=== PATIENT | male | born 1965 | race Caucasian/White ===

== ENCOUNTER 2020-08-08 21:29 | Emergency (ER) | payer OTHER, SELFPAY ==
[2020-08-08 21:42] VITALS: BP 127/87; PULSE 103; RESP 20; TEMP 37.2; O2SAT 98; BMI 27.0
[2020-08-08 22:20] VITALS: BP 140/97; PULSE 94; RESP 18; TEMP 36.7; O2SAT 98
[2020-08-08 22:23] LABS: Basophils Absolute Auto 0.1 X10*3/uL (0.0-0.2); Basophils Percent Auto 0.7 % (0-2); Eosinophils Absolute Auto 0.1 X10*3/uL (0.0-0.4); Hematocrit 39.9 % (42-52); Hemoglobin 14.3 g/dl (14.0-18.0); Imm Gran Abs Auto 0.06 X10*3/uL (0.00-0.03); Imm Gran Pct Auto 0.5 % (0.0-0.4); Lymphocytes Absolute Auto 1.5 X10*3/uL (1.2-4.9); Lymphocytes Percent Auto 11.7 % (20-40); MANUAL DIFF FLAG NO; Mean Corpuscular HGB Conc 35.8 g/dl (31.0-36.0); Mean Corpuscular Hemoglobin 31.4 pg (27.0-33.0); Mean Corpuscular Volume 87.7 fL (80-98); Mean Platelet Volume 9.5 fL (9.4-12.4); Monocytes Absolute Auto 0.9 X10*3/uL (0.1-1.2); Monocytes Percent Auto 7.3 % (2-11); Neutrophils Absolute Auto 9.8 X10*3/uL (2.0-8.3); Neutrophils Percent Auto 78.8 % (45-73); Platelet Count 248 X10*3/uL (160-400); Red Blood Count 4.55 X10*6/uL (4.60-5.80); Red Cell Distribution Width 11.6 % (11.0-16.0); White Blood Count 12.5 X10*3/uL (4.8-10.8)
[2020-08-08 22:45] LABS: Anion Gap 15 (12-20); Blood Urea Nitrogen 10 mg/dL (9-16); Calcium 8.9 mg/dL (8.4-10.2); Carbon Dioxide 24 mmol/L (22-29); Chloride 103 mmol/L (96-108); Creatinine Clr Calc Pharmacy 84.4; Estimated Glomerular Filt Rate > 60; Glucose Random 113 mg/dL (60-115); Potassium 3.7 mmol/L (3.3-5.1); Sodium 138 mmol/L (135-145)
[2020-08-08 23:53] VITALS: BP 143/93; PULSE 83; RESP 18; TEMP 36.7; O2SAT 99
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
[2020-08-09] MEDS: Acetaminophen 325 MG TABLET 975 MG PO (00:37)
[2020-08-09] MEDS: Ibuprofen 400 MG TABLET PO (00:37)
== END 2020-08-09 00:43 | disposition home or self-care (01) ==
PROVIDERS: Emergency Provider Student in an Organized Health Care Education/Training Program; PCP Internal Medicine
DX: T25.222A Burn of second degree of left foot, initial encounter (principal); T31.0 Burns involving less than 10% of body surface; X12.XXXA Contact with other hot fluids, initial encounter; Y93.9 Activity, unspecified; Y92.019 Unspecified place in single-family (private) house as the place of occurrence of the external cause; Y99.9 Unspecified external cause status
CPT/HCPCS: 16020; 36415; 80048; 85025; 87040; 90471; 90715; 99284

== ENCOUNTER 2020-10-13 13:18 | Outpatient (REF) | payer OTHER, SELFPAY ==
[2020-10-13 14:09] LABS: COVID-19 Test Negative (Negative); IDNOW Serial# 55D5AD1C
== END 2020-10-13 13:19 | disposition home or self-care (01) ==
LOC: HO.LAB 13:18
PROVIDERS: Visit Provider Internal Medicine
DX: Z20.822 Contact with and (suspected) exposure to COVID-19 (principal)
CPT/HCPCS: 36415; 87635; C9803

== ENCOUNTER 2021-02-25 21:30 | Emergency (ER) | payer OTHER, SELFPAY ==
[2021-02-25 21:32] VITALS: BP 142/91; PULSE 83; RESP 16; TEMP 36.1; O2SAT 98; BMI 25.7
--- NOTE | 2021-02-25 21:43 | ED.SKABFB ---
HPI - Skin/Abscess/Foreign Bdy General Chief complaint: Skin/Abscess/Foreign Body Stated complaint: abscess Time Seen by Provider: 02/25/21 21:36 Source: patient Mode of arrival: ambulatory Limitations: no limitations History of Present Illness HPI narrative: 55-year-old male here with redness and swelling to the left forearm for 2 days. Unknown injury or trauma. No fevers or chills. Related Data Previous Rx's Medication Instructions Recorded doxycycline monohydrate 100 mg 100 mg PO BID #20 tab 02/25/21 tablet Allergies Allergy/AdvReac Type Severity Reaction Status Date / Time sulfamethoxazole AdvReac Nausea Verified 02/25/21 21:34 [From Bactrim] trimethoprim [From Bactrim] AdvReac Nausea Verified 02/25/21 21:34 Review of Systems Review of Systems: Yes all other systems are reviewed and are negative Constitutional: Constitutional: Reports no additional constitutional complaints, Denies body ache(s), Denies chills, Denies fever(s), Denies headache(s) and Denies weakness Eyes: Eyes: Reports no additional eye complaints and Denies change in vision ENT: Reports system reviewed and no additional complaints, except as documented, Denies dizziness, Denies headache(s), Denies nasal congestion, Denies nasal discharge and Denies neck pain Cardiovascular: Cardiovascular: Reports no additional cardiovascular complaints, Denies chest pain, Denies leg edema and Denies dyspnea Respiratory: Respiratory: Reports no additional respiratory complaints, Denies cough and Denies dyspnea Gastrointestinal: Gastrointestinal: Reports no additional gastrointestinal complaints, Denies abdominal pain, Denies diarrhea, Denies nausea and Denies vomiting Genitourinary: Genitourinary: Denies urinary incontinence Musculoskeletal: Musculoskeletal: Reports no additional musculoskeletal complaints, Denies back pain, Denies arthralgias, Denies joint swelling, Denies neck pain, Denies numbness and Denies tingling Integumentary/Breasts: Skin/Breast: Reports system reviewed and no additional complaints, except as docu, Reports swelling, Reports erythema and Denies rash Neurologic: Reports system reviewed and no additional complaints, except as documented, Denies Abnormal speech present, Denies dizziness, Denies headache(s), Denies numbness, Denies tingling and Denies weakness PMFSH Past Medical History Medical History Depression Hx of intravenous drug use in remission Social History Social History Alcohol intake: current Alcohol intake frequency: a few times a week Physical Exam Vital Signs: Vital Signs: Last Vital Signs Temp 96.9 F 02/25/21 21:32 Pulse 83 02/25/21 21:32 Resp 16 02/25/21 21:32 BP 142/91 H 02/25/21 21:32 Pulse Ox 98 02/25/21 21:32 Body Mass Index 25.7 Const: General: cooperative, healthy appearing, comfortable and no acute distress Orientation/consciousness: patient oriented x3 Limitations: no limitations HENMT: Head: Yes normal to inspection Ears: hearing grossly normal bilaterally General nose exam: Normal external nose present Face and sinus: Yes normal facial exam Mouth: Normal oral and palatal mucosa present Throat: Yes posterior oropharynx normal Eyes: General: appearance normal, both eyes and all related structures Pupils: Equal, round and reactive pupils present Neck: Neck: Yes normal visual inspection Chest: Chest palpation & inspection: normal inspection of the chest Resp: Effort & Inspection: normal respiratory effort Auscultation: clear to auscultation bilaterally Cardio: Rate: regular rate Rhythm: regular rhythm Peripheral pulses: Peripheral pulses 2+ throughout GI: Inspection: Yes normal to inspection Palpation (GI): Soft to palpation and nontender Auscultation: normal bowel sounds Back/Spine/Pelvis: Thoracic/Lumbar Spine: thoracic and lumbar spine normal to inspection Skin: General skin exam: no rashes or lesions noted Neuro: General: patient oriented x3, no focal motor deficits and normal sensation to monofilament Cranial nerves: Yes Equal, round and reactive pupils present Cognition (Neuro): normal cognition Speech: No Abnormal speech present Gait exam (Neuro): Normal gait present Motor exam (neuro): 5/5 motor strength present throughout Extrem: Other: To the distal left forearm there is a 4 centimetre area that is circular of redness and swelling and some drainage. There is no induration or fluctuance. It is not circumferential General: Yes normal to inspection Course Course Course Narrative: Local abscess. No need for I&D. Will start patient on oral antibiotics and recommend warm soaks. Reviewed worrisome signs and symptoms of when to return to the emergency department. Comfortable discharge home. MDM - Skin/Abscess/Foreign Bdy Medical Records Attestation: I reviewed the patient's medical records. Lab Data Attestation: I reviewed the patient's lab results. Discharge Plan Discharge Clinical Impression: Abscess of skin or subcutaneous tissue Patient Disposition: Home, Self-Care Instructions: Abscess (ED) Additional Instructions: warm compresses or soak Prescriptions: New doxycycline monohydrate 100 mg tablet 100 mg PO BID Qty: 20 RF: 0 Referrals: Donna Nguyễn MD [Primary Care Provider] - 2 days
== END 2021-02-25 22:17 | disposition home or self-care (01) ==
LOC: HO.ED 21:47
PROVIDERS: Emergency Provider Emergency Medicine Emergency Medical Services; PCP Internal Medicine
DX: L02.414 Cutaneous abscess of left upper limb (principal); F11.20 Opioid dependence, uncomplicated
CPT/HCPCS: 99283; 99284

== ENCOUNTER 2022-03-15 14:57 | Emergency (ER) | payer OTHER, SELFPAY ==
[2022-03-15 15:06] VITALS: BP 175/99; PULSE 115; RESP 18; TEMP 37.2; O2SAT 97; BMI 23.7
--- NOTE | 2022-03-15 15:08 | ECG_ITS ---
Test Reason : tacky Blood Pressure : / mmHG Vent. Rate : 099 BPM Atrial Rate : 099 BPM P-R Int : 136 ms QRS Dur : 076 ms QT Int : 334 ms P-R-T Axes : 073 022 070 degrees QTc Int : 428 ms Normal sinus rhythm Right atrial enlargement Nonspecific ST abnormality Abnormal ECG No previous ECGs available Referred By: Generic ED Physician Electronically Signed By:SANDI GARCIA
[2022-03-15 16:09] LABS: MANUAL DIFF FLAG NO
[2022-03-15 16:10] LABS: Basophils Absolute Auto 0.2 X10*3/uL (0.0-0.2); Basophils Percent Auto 1.3 % (0-2); Eosinophils Percent Auto 0.3 % (0-4); Hematocrit 50.7 % (42.0-52.0); Imm Gran Abs Auto 0.05 X10*3/uL (0.00-0.03); Imm Gran Pct Auto 0.4 % (0.0-0.4); Lymphocytes Absolute Auto 1.6 X10*3/uL (1.2-4.9); Lymphocytes Percent Auto 13.6 % (20-40); Mean Corpuscular HGB Conc 35.5 g/dl (31.0-36.0); Mean Corpuscular Hemoglobin 31.1 pg (27.0-33.0); Mean Corpuscular Volume 87.7 fL (80.0-98.0); Mean Platelet Volume 8.9 fL (9.4-12.4); Monocytes Absolute Auto 0.7 X10*3/uL (0.1-1.2); Monocytes Percent Auto 5.9 % (2-11); Neutrophils Percent Auto 78.5 % (45-73); Platelet Count 331 X10*3/uL (160-400); Red Blood Count 5.78 X10*6/uL (4.60-5.80); Red Cell Distribution Width 13.1 % (11.0-16.0); White Blood Count 11.4 X10*3/uL (4.8-10.8)
[2022-03-15 16:24] LABS: COVID-19 Test Negative (Negative)
[2022-03-15 16:26] LABS: Alanine Aminotransferase 32 U/L (0-40); Albumin Level 4.4 g/dL (3.5-5.0); Alkaline Phosphatase 87 U/L (39-117); Anion Gap 21 (12-20); Aspartate Amino Transferase 37 U/L (5-37); Bilirubin Total 0.9 mg/dL (0.0-1.0); Blood Urea Nitrogen 10 mg/dL (9-16); Calcium 8.8 mg/dL (8.4-10.2); Carbon Dioxide 24 mmol/L (22-29); Chloride 98 mmol/L (96-108); Creatinine Clr Calc Pharmacy 92.4; Estimated Glomerular Filt Rate > 60; Ethanol 320 mg/dL; Glucose Random 123 mg/dL (60-115); Potassium 4.4 mmol/L (3.3-5.1); Sodium 139 mmol/L (135-145); Total Protein 7.5 g/dL (6.5-8.0)
[2022-03-15 20:23] VITALS: BP 152/99; PULSE 100; RESP 18; TEMP 36.6; O2SAT 98
[2022-03-15 23:28] VITALS: BP 149/99; PULSE 102; RESP 18; TEMP 36.6; O2SAT 98
--- NOTE | 2022-03-16 01:31 | ED.GENADULT ---
HPI - General Adult General Chief complaint: Psychiatric Symptoms Stated complaint: Psych symptoms Time Seen by Provider: 03/16/22 01:23 Source: patient Limitations: no limitations History of Present Illness HPI narrative: this is a 56-year-old male who had been on Seroquel, until 9 days ago. The patient went to get a refilled but his primary care physician apparently has stated that here she will not prescribe psychiatric medications any more. The patient states he has tried to get seen at [facility] for this reason. The patient notes that he has been drinking more alcohol recently. He denies drinking every day. He does feel a little shaky and nauseated. He denies any suicidal ideation or attempt, denies hearing voices, denies wanting to hurt anybody else. He feels like he needs something to Level him out . Related Data Previous Rx's Medication Instructions Recorded doxycycline monohydrate 100 mg 100 mg PO BID #20 tabs 02/25/21 tablet diazepam 5 mg tablet (Valium) 5 mg PO TID PRN anxiety #10 tabs 03/16/22 ondansetron 4 mg disintegrating 4 mg PO Q6H PRN nausea and 03/16/22 tablet vomiting #10 tabs quetiapine 200 mg tablet (Seroquel) 200 mg PO DAILY #30 tabs 03/16/22 Allergies Allergy/AdvReac Type Severity Reaction Status Date / Time sulfamethoxazole AdvReac Nausea Verified 02/25/21 21:34 [From Bactrim] trimethoprim [From Bactrim] AdvReac Nausea Verified 02/25/21 21:34 Review of Systems Review of Systems: Yes all other systems are reviewed and are negative Constitutional: Constitutional: Reports as per HPI and Denies fever(s) Eyes: Eyes: Reports as per HPI and Reports no additional eye complaints ENT: Reports system reviewed and no additional complaints, except as documented, Reports as per HPI, Denies nasal congestion, Denies nasal discharge and Denies sore throat Cardiovascular: Cardiovascular: Reports as per HPI, Denies chest pain and Denies dyspnea Respiratory: Respiratory: Reports as per HPI, Denies cough and Denies dyspnea Gastrointestinal: Gastrointestinal: Reports as per HPI, Denies abdominal pain, Denies diarrhea, Reports nausea and Denies vomiting Genitourinary: Genitourinary: Reports as per HPI, Denies hematuria, Denies dysuria and Denies urinary frequency Musculoskeletal: Musculoskeletal: Reports no additional musculoskeletal complaints and Denies numbness Integumentary/Breasts: Skin/Breast: Reports as per HPI and Denies rash Neurologic: Reports as per HPI, Denies focal weakness and Denies numbness Comments: Feels shaky Psychiatric: Psychiatric: Reports no additional psychiatric complaints and Reports as per HPI Endocrine: Endocrine: Reports no additional endocrine complaints and Reports as per HPI Hematologic/Lymphatic: Hematologic/Lymphatic: Reports no additional hematologic/lymphatic complaints, Reports as per HPI and Reports other (No peripheral edema) [facility] Past Medical History Medical History Depression Hx of intravenous drug use in remission Social History Social History Alcohol intake: current Alcohol intake frequency: a few times a week Advance Directives: No Advance Directives Information Provided: No Physical Exam ED Vital Signs: Vital Signs - 24 hr 03/15/22 15:06 03/15/22 20:23 03/15/22 23:28 Temperature 98.9 F 97.9 F 97.8 F Pulse Rate 115 H 100 102 H Respiratory Rate 18 18 18 Blood Pressure 175/99 H 152/99 H 149/99 H Pulse Oximetry 97 98 98 Oxygen Delivery Method Room Air Room Air Room Air 03/16/22 03:44 Temperature Pulse Rate 106 H Respiratory Rate 16 Blood Pressure 138/92 H Pulse Oximetry 95 Oxygen Delivery Method Room Air BMI result Body Mass Index 23.7 Const General: no acute distress Orientation/consciousness: patient oriented x3 HENMT Head: Yes normal to inspection General nose exam: Normal external nose present Mouth: moist mucous membranes Throat: Yes posterior oropharynx normal, Yes tonsils normal and Yes uvula midline Eyes Eyelids: Yes eyelids normal Conjunctivae: conjunctivae normal Pupils: Equal, round and reactive pupils present Neck Neck: Yes supple Resp Effort & Inspection: normal respiratory effort Auscultation: clear to auscultation bilaterally Cardio Rate: regular rate Rhythm: regular rhythm Heart sounds: S1 normal heart sound present, S2 normal heart sound present, no gallops, no murmurs and no rubs GI Inspection: No distended Palpation (GI): Soft to palpation and nontender Auscultation: normal bowel sounds Skin General skin exam: other (Warm and dry) Neuro Other: patient not tremulous General: patient oriented x3 and CN's II-XI intact bilaterally Cranial nerves: Yes Equal, round and reactive pupils present Extrem General: Yes no pedal edema Psych Affect: normal affect Attitude: cooperative Medical Decision Making MDM Narrative Medical decision making narrative: Patient complains of dysphoria after having stopped his Seroquel, reports increased drinking recently and feeling a little shaky. Patient was not tremulous. He reports that his primary care physician would not refill his Seroquel. Patient was treated with Valium and Zofran and had improvement in his symptoms. Patient denied being suicidal or homicidal. Will prescribed limited number of Valium, as well as ondansetron, and 30 days worth of Seroquel, 200 mg, which is the dose he said he had previously been on. Lab Data Lab results reviewed: Yes I reviewed the patient's lab results. Result diagrams: 03/15/22 16:04 03/15/22 16:04 Labs: Lab Results 03/15/22 03/15/22 03/15/22 Range/Units 16:04 16:04 16:04 WBC 11.4 H (4.8-10.8) X10*3/uL RBC 5.78 (4.60-5.80) X10*6/uL Hgb 18.0 (14.0-18.0) g/dl Hct 50.7 (42.0-52.0) % MCV 87.7 (80.0-98.0) fL MCH 31.1 (27.0-33.0) pg MCHC 35.5 (31.0-36.0) g/dl RDW 13.1 (11.0-16.0) % Plt Count 331 (160-400) X10*3/uL MPV 8.9 L (9.4-12.4) fL Immature Gran % (Auto) 0.4 (0.0-0.4) % Neut % (Auto) 78.5 H (45-73) % Lymph % (Auto) 13.6 L (20-40) % [place] % (Auto) 5.9 (2-11) % Eos % (Auto) 0.3 (0-4) % Baso % (Auto) 1.3 (0-2) % Lymph # (Auto) 1.6 (1.2-4.9) X10*3/uL [place] # (Auto) 0.7 (0.1-1.2) X10*3/uL Eos # (Auto) 0.0 (0.0-0.4) X10*3/uL Baso # (Auto) 0.2 (0.0-0.2) X10*3/uL Abs Immat Gran (auto) 0.05 H (0.00-0.03) X10*3/uL Absolute Neuts (auto) 9.0 H (2.0-8.3) x10*3/uL Absolute Nucleated RBC 0.000 (0.0-0.012) X10*3/uL Nucleated RBC % (auto) 0.0 (0.0-0.2) /100WBC Sodium 139 (135-145) mmol/L Potassium 4.4 (3.3-5.1) mmol/L Chloride 98 (96-108) mmol/L Carbon Dioxide 24 (22-29) mmol/L Anion Gap 21 H (12-20) BUN 10 (9-16) mg/dL Creatinine 1.02 (0.5-1.4) mg/dL Estim Creat Clear Calc 92.4 Estimated GFR > 60 Random Glucose 123 H (60-115) mg/dL Calcium 8.8 (8.4-10.2) mg/dL Total Bilirubin 0.9 (0.0-1.0) mg/dL AST 37 (5-37) U/L ALT 32 (0-40) U/L Alkaline Phosphatase 87 (39-117) U/L Total Protein 7.5 (6.5-8.0) g/dL Albumin 4.4 (3.5-5.0) g/dL Ethyl Alcohol 320 H* mg/dL COVID-19 (MICAH) Negative (Negative) COVID-19 Clin Com See Note Discharge Plan Discharge Clinical Impression: Anxiety, Alcohol abuse Patient Disposition: Home, Self-Care Instructions: Anxiety (ED) Additional Instructions: restart her Seroquel. Uses diazepam as prescribed for the next few days As needed for anxiety or feeling shaky.. Avoid alcohol use. Use ondansetron as prescribed for nausea. Follow up with Yourprimary care physician and a psychiatrist who can prescribe your Seroquel. Return for any new or worsened symptoms Prescriptions: New diazepam [Valium] 5 mg tablet 5 mg PO TID PRN (Reason: anxiety) Qty: 10 0RF ondansetron 4 mg tablet,disintegrating 4 mg PO Q6H PRN (Reason: nausea and vomiting) Qty: 10 0RF quetiapine [Seroquel] 200 mg tablet 200 mg PO DAILY Qty: 30 0RF No Action doxycycline monohydrate 100 mg tablet 100 mg PO BID Qty: 20 0RF Interventions: ED Discharge Assessment Last Done: 03/16/22 03:38 Discharge Date/Time: 03/16/22 03:46
[2022-03-16] MEDS: diazePAM 2 MG TABLET 10 MG PO (02:26)
[2022-03-16] MEDS: Ondansetron ODT 4 MG TAB.RAPDIS TRANSLINGU (02:26)
[2022-03-16 03:44] VITALS: BP 138/92; PULSE 106; RESP 16; O2SAT 95
== END 2022-03-16 03:46 | disposition home or self-care (01) ==
PROVIDERS: Emergency Provider Emergency Medicine
DX: R00.0 Tachycardia, unspecified (principal); F41.1 Generalized anxiety disorder; F43.0 Acute stress reaction; F10.10 Alcohol abuse, uncomplicated; Y90.8 Blood alcohol level of 240 mg/100 ml or more; Z20.822 Contact with and (suspected) exposure to COVID-19; Z79.899 Other long term (current) drug therapy
CPT/HCPCS: 80053; 82077; 85025; 87635; 93005; 99283; 99284

== ENCOUNTER 2022-10-22 20:11 | Emergency (ER) | payer OTHER, SELFPAY ==
--- NOTE | ~2022-10-22 | CT_ITS ---
EXAMINATION: CT HEAD WITHOUT CONTRAST CLINICAL INFORMATION: Severe headache. Hypertension. COMPARISON: None. TECHNIQUE: Contiguous axial imaging was performed from the skull base to vertex without intravenous contrast. This CT examination was performed using dose optimization techniques as appropriate, variously including the following: * Automated exposure control * Adjustment of mA and/or kV according to patient size (this includes techniques or standardized protocols for targeted exams where dose is matched to indication/reason for exam; i.e. extremities or head) Use of iterative reconstruction technique DLP: 670 mGy-cm. FINDINGS: There is no evidence of acute intracranial hemorrhage or territorial infarction. No abnormal mass effect or midline shift is seen. Foy to white matter differentiation is well preserved. No extra-axial fluid collections are identified. No hydrocephalus. No significant volume loss. There is no abnormal attenuation within the brain parenchyma. The osseous structures and soft tissues are normal. The mastoid air cells and visualized portions of the paranasal sinuses are well aerated. CT/CT head/brain wo IV con IMPRESSION: No acute intracranial pathology.
[2022-10-22 20:20] VITALS: BP 170/110; PULSE 100; O2SAT 97; BMI 25.7
[2022-10-22 20:28] VITALS: BP 183/110; PULSE 94; RESP 18; TEMP 37.1; O2SAT 96
[2022-10-22 20:53] LABS: MANUAL DIFF FLAG NO
[2022-10-22 20:54] LABS: Basophils Absolute Auto 0.1 X10*3/uL (0.0-0.2); Basophils Percent Auto 1.3 % (0-2); Eosinophils Absolute Auto 0.1 X10*3/uL (0.0-0.4); Eosinophils Percent Auto 0.9 % (0-4); Hematocrit 43.6 % (42.0-52.0); Hemoglobin 16.1 g/dl (14.0-18.0); Imm Gran Abs Auto 0.03 X10*3/uL (0.00-0.03); Imm Gran Pct Auto 0.4 % (0.0-0.4); Lymphocytes Percent Auto 25.7 % (20-40); Mean Corpuscular HGB Conc 36.9 g/dl (31.0-36.0); Mean Corpuscular Hemoglobin 32.6 pg (27.0-33.0); Mean Corpuscular Volume 88.3 fL (80.0-98.0); Mean Platelet Volume 8.6 fL (9.4-12.4); Monocytes Absolute Auto 0.7 X10*3/uL (0.1-1.2); Monocytes Percent Auto 9.2 % (2-11); Neutrophils Absolute Auto 4.8 x10*3/uL (2.0-8.3); Neutrophils Percent Auto 62.5 % (45-73); Platelet Count 282 X10*3/uL (160-400); Red Blood Count 4.94 X10*6/uL (4.60-5.80); Red Cell Distribution Width 12.3 % (11.0-16.0); White Blood Count 7.6 X10*3/uL (4.8-10.8)
[2022-10-22 21:05] LABS: Appearance Urine Clear; Color Urine Yellow; Glucose Urine UA Negative (Negative); Leukocyte Esterase Urine Negative (Negative); Nitrite Urine Negative (Negative); PH 7.5 (5.0-9.0); Urine Blood Negative (Negative); Urine Ketones Negative (Negative); Urine Protein Trace mg/dL (Neg-Trace)
[2022-10-22 21:17] LABS: Alanine Aminotransferase 35 U/L (0-40); Albumin Level 4.1 g/dL (3.5-5.0); Alkaline Phosphatase 78 U/L (39-117); Anion Gap 14 (12-20); Aspartate Amino Transferase 39 U/L (5-37); Bilirubin Direct 0.3 mg/dL (0.0-0.5); Bilirubin Total 0.8 mg/dL (0.0-1.0); Blood Urea Nitrogen 7 mg/dL (9-16); Calcium 8.5 mg/dL (8.4-10.2); Carbon Dioxide 25 mmol/L (22-29); Chloride 104 mmol/L (96-108); Creatinine Clr Calc Pharmacy 101.7; Estimated Glomerular Filt Rate > 60; Glucose Random 114 mg/dL (60-115); Lipase 10 U/L (8-78); Magnesium 2.2 mg/dL (1.6-2.6); Potassium 3.8 mmol/L (3.3-5.1); Sodium 139 mmol/L (135-145); Total Protein 6.8 g/dL (6.5-8.0)
[2022-10-22] MEDS: LORazepam 1 MG TABLET PO (21:37)
--- NOTE | 2022-10-22 21:53 | ECG_ITS ---
Test Reason : HYPERTENTION Blood Pressure : / mmHG Vent. Rate : 087 BPM Atrial Rate : 087 BPM P-R Int : 122 ms QRS Dur : 074 ms QT Int : 370 ms P-R-T Axes : 059 -04 040 degrees QTc Int : 445 ms Normal sinus rhythm Normal ECG No previous ECGs available Referred By: Maureen Schwartz Electronically Signed By:Toño Cameron
--- NOTE | 2022-10-22 21:59 | ED.HA ---
HPI - Headache General Chief Complaint: Headache Stated Complaint: Abd Pain/headache Time Seen by Provider: 10/22/22 21:52 Source: patient Mode of arrival: EMS Limitations: no limitations History of Present Illness HPI Narrative: Patient comes to emergency room from [facility]. Patient states that he has been complaining of headache all day. They checked his blood pressure and it was 196/112. Patient states that he has been having intermittent headaches lately, and has been told that his blood pressure is elevated. Patient does not have a diagnosis of hypertension and does not take any medications for blood pressure. Patient complaining of severe headache. Denies any visual changes, no nausea vomiting. No chest pain or shortness of breath Related Data Previous Rx's Medication Instructions Recorded hydrochlorothiazide 25 mg tablet 25 mg PO DAILY #90 tabs 10/22/22 Allergies Allergy/AdvReac Type Severity Reaction Status Date / Time sulfamethoxazole Allergy Nausea and Verified 10/22/22 20:36 [From Bactrim] Vomiting trimethoprim [From Bactrim] Allergy Nausea and Verified 10/22/22 20:36 Vomiting Review of Systems Review of Systems: Constitutional : No Weight loss, No Fever, No Chills, No Night Sweats, No Fatigue, No Malaise ENT/Mouth : No Hearing loss, No Ear Pain, No Nasal Congestion, No Sinus Pain, No Hoarseness, No sore throat, No Rhinorrhea, No Swallowing Difficulty Eyes: No Eye Pain, No Swelling, No Redness, No Foreign Body, No Discharge, No Vision Changes Cardiovascular : No Chest Pain, No SOB, No Dyspnea on Exertion, No Orthopnea, No Edema, No Palpitations, complaining of headache Respiratory : No Cough, No Sputum, No Wheezing, No Smoke Exposure, No Dyspnea Gastrointestinal : No Nausea, No Vomiting, No Diarrhea, No Constipation, No abdominal Pain, No Hematochezia, No Melena Genitourinary : no irregular bleeding, No Dysuria, No Urinary Frequency, No Hematuria, No Urinary Incontinence, No Urgency, No Flank Pain, No Urinary Flow Changes, No Hesitancy Musculoskeletal : No joint pain, No Myalgias, No Joint Swelling Skin : No Skin Lesions, No rash Neuro : No Weakness, No Numbness, No Paresthesias, No Loss of Consciousness, No Dizziness, complaining of Headache Psych : No Anxiety/Panic, No Depression, No SI/HI/AH/VH, No Social Issues, Heme/Lymph: No Bruising, No Bleeding,No Lymphadenopathy Endocrine : No Polyuria, No Polydipsia, No Temperature Intolerance [facility] Social History Social History Alcohol intake: current Alcohol intake frequency: 3 or more drinks per day Alcohol type: hard liquor Smoked in Last 30 Days: Yes Use of substances other than those prescribed or required for medical reasons: Yes Substance Use Type: Marijuana Advance Directives: No Physical Exam Vital Signs: Vital Signs: Last Vital Signs Temp 97.8 F 10/22/22 22:06 Pulse 70 10/22/22 23:43 Resp 16 10/22/22 23:43 BP 121/87 10/22/22 23:43 Pulse Ox 97 10/22/22 22:06 O2 Del Method Room Air 10/22/22 22:06 BMI result Body Mass Index 25.7 Const: Other: Appearance: Alert. Oriented X3. No acute distress. Eyes: Pupils equal, round and reactive to light. ENT: Pharynx normal. Neck: Normal inspection. Neck supple. No lymph nodes noted. No crepitus CVS: Normal heart rate and rhythm. Pulses normal. Normal S1 and S2 Respiratory: No respiratory distress. Breath sounds normal. No Wheezing. No rales Abdomen: Soft and nontender. No rigidity. No distention. Skin: Skin warm and dry. Normal skin color. Normal skin turgor. Extremities: No lower extremity edema. No Lacerations. No Rash Neuro: Oriented X 3. No motor deficit. No sensory deficit. Moving all extremities. No slurred speech. CN 2 through 12 grossly intact Psych: calm, cooperative, normal affect Course Course Course Narrative: -patient's blood pressure in triage 183/110. Patient complaining of headache -patient given 1 dose of p.o. labetalol 100 mg, earlier today patient received 1 dose of p.o. Ativan for agitation. -for headache patient getting p.o. Versed, Benadryl, Reglan. Medications Administered Discontinued Medications Generic Name Dose Route Start Last Admin Trade Name Freq PRN Reason Stop Dose Admin Acetaminophen/Butalbital/Caffeine 1 tab 10/22/22 21:57 10/22/22 22:07 Butalb/Acetamin/Caff 50/325/40 Tablet PO 10/22/22 21:58 1 tab ONCE ONE Administration Diphenhydramine HCl 25 mg 10/22/22 21:58 10/22/22 22:07 Diphenhydramine Hcl 25 Mg Capsule PO 10/22/22 21:59 25 mg ONCE ONE Administration Labetalol HCl 100 mg 10/22/22 21:57 10/22/22 22:07 Labetalol Hcl 100 Mg Tablet PO 10/22/22 21:58 100 mg ONCE ONE Administration Protocol Lorazepam 1 mg 10/22/22 21:30 10/22/22 21:37 Lorazepam 1 Mg Tablet PO 10/22/22 21:31 1 mg ONCE ONE Administration Metoclopramide HCl 10 mg 10/22/22 21:58 10/22/22 22:07 Metoclopramide Hcl 10 Mg Tablet PO 10/22/22 21:59 10 mg ONCE ONE Administration Medical Decision Making Medical Decision Making [facility] Narrative: -interpretation of CT scan of the head: No acute findings, no intracranial bleed. -patient received 1 dose of 100 mg p.o. labetalol -blood pressure on discharge 07/16 , patient feeling much better. Differential Diagnosis Differential Diagnoses: The differential diagnosis associated with the presentation includes (Hypertensive urgency, migraine headache, hypertension) Lab Data [facility] Lab Attestation statement: I reviewed the patient's lab results. 10/22/22 20:49 10/22/22 20:49 Labs: Lab Results 10/22/22 10/22/22 10/22/22 Range/Units 20:49 20:49 20:58 WBC 7.6 (4.8-10.8) X10*3/uL RBC 4.94 (4.60-5.80) X10*6/uL Hgb 16.1 (14.0-18.0) g/dl Hct 43.6 (42.0-52.0) % MCV 88.3 (80.0-98.0) fL MCH 32.6 (27.0-33.0) pg MCHC 36.9 H (31.0-36.0) g/dl RDW 12.3 (11.0-16.0) % Plt Count 282 (160-400) X10*3/uL MPV 8.6 L (9.4-12.4) fL Immature Gran % (Auto) 0.4 (0.0-0.4) % Neut % (Auto) 62.5 (45-73) % Lymph % (Auto) 25.7 (20-40) % Douglas % (Auto) 9.2 (2-11) % Eos % (Auto) 0.9 (0-4) % Baso % (Auto) 1.3 (0-2) % Lymph # (Auto) 2.0 (1.2-4.9) X10*3/uL Douglas # (Auto) 0.7 (0.1-1.2) X10*3/uL Eos # (Auto) 0.1 (0.0-0.4) X10*3/uL Baso # (Auto) 0.1 (0.0-0.2) X10*3/uL Abs Immat Gran (auto) 0.03 (0.00-0.03) X10*3/uL Absolute Neuts (auto) 4.8 (2.0-8.3) x10*3/uL Absolute Nucleated RBC 0.000 (0.0-0.012) X10*3/uL Nucleated RBC % (auto) 0.0 (0.0-0.2) /100WBC Sodium 139 (135-145) mmol/L Potassium 3.8 (3.3-5.1) mmol/L Chloride 104 (96-108) mmol/L Carbon Dioxide 25 (22-29) mmol/L Anion Gap 14 (12-20) BUN 7 L (9-16) mg/dL Creatinine 0.89 (0.5-1.4) mg/dL Estim Creat Clear Calc 101.7 Estimated GFR > 60 Random Glucose 114 (60-115) mg/dL Calcium 8.5 (8.4-10.2) mg/dL Magnesium 2.2 (1.6-2.6) mg/dL Total Bilirubin 0.8 (0.0-1.0) mg/dL Direct Bilirubin 0.3 (0.0-0.5) mg/dL AST 39 H (5-37) U/L ALT 35 (0-40) U/L Alkaline Phosphatase 78 (39-117) U/L Troponin I High Sens (<3.5-35.0) ng/L Total Protein 6.8 (6.5-8.0) g/dL Albumin 4.1 (3.5-5.0) g/dL Lipase 10 (8-78) U/L Urine Color Yellow Urine Appearance Clear Urine pH 7.5 (5.0-9.0) Ur Specific [place] 1.010 (1.005-1.025) Urine Protein Trace (Neg-Trace) mg/dL Urine Glucose (UA) Negative (Negative) mg/dL Urine Ketones Negative (Negative) mg/dL Urine Blood Negative (Negative) Urine Nitrite Negative (Negative) Ur Leukocyte Esterase Negative (Negative) 10/22/22 Range/Units 22:13 WBC (4.8-10.8) X10*3/uL RBC (4.60-5.80) X10*6/uL Hgb (14.0-18.0) g/dl Hct (42.0-52.0) % MCV (80.0-98.0) fL MCH (27.0-33.0) pg MCHC (31.0-36.0) g/dl RDW (11.0-16.0) % Plt Count (160-400) X10*3/uL MPV (9.4-12.4) fL Immature Gran % (Auto) (0.0-0.4) % Neut % (Auto) (45-73) % Lymph % (Auto) (20-40) % Douglas % (Auto) (2-11) % Eos % (Auto) (0-4) % Baso % (Auto) (0-2) % Lymph # (Auto) (1.2-4.9) X10*3/uL [place] # (Auto) (0.1-1.2) X10*3/uL Eos # (Auto) (0.0-0.4) X10*3/uL Baso # (Auto) (0.0-0.2) X10*3/uL Abs Immat Gran (auto) (0.00-0.03) X10*3/uL Absolute Neuts (auto) (2.0-8.3) x10*3/uL Absolute Nucleated RBC (0.0-0.012) X10*3/uL Nucleated RBC % (auto) (0.0-0.2) /100WBC Sodium (135-145) mmol/L Potassium (3.3-5.1) mmol/L Chloride (96-108) mmol/L Carbon Dioxide (22-29) mmol/L Anion Gap (12-20) BUN (9-16) mg/dL Creatinine (0.5-1.4) mg/dL Estim Creat Clear Calc Estimated GFR Random Glucose (60-115) mg/dL Calcium (8.4-10.2) mg/dL Magnesium (1.6-2.6) mg/dL Total Bilirubin (0.0-1.0) mg/dL Direct Bilirubin (0.0-0.5) mg/dL AST (5-37) U/L ALT (0-40) U/L Alkaline Phosphatase (39-117) U/L Troponin I High Sens 9.7 (<3.5-35.0) ng/L Total Protein (6.5-8.0) g/dL Albumin (3.5-5.0) g/dL Lipase (8-78) U/L Urine Color Urine Appearance Urine pH (5.0-9.0) Ur Specific [place] (1.005-1.025) Urine Protein (Neg-Trace) mg/dL Urine Glucose (UA) (Negative) mg/dL Urine Ketones (Negative) mg/dL Urine Blood (Negative) Urine Nitrite (Negative) Ur Leukocyte Esterase (Negative) Independent Interpretation I performed an independent interpretation of an: CT Scan Interpretation: FINDINGS: There is no evidence of acute intracranial hemorrhage or territorial infarction. No abnormal mass effect or midline shift is seen. Foy to white matter differentiation is well preserved. No extra-axial fluid collections are identified. No hydrocephalus. No significant volume loss. There is no abnormal attenuation within the brain parenchyma. The osseous structures and soft tissues are normal. The mastoid air cells and visualized portions of the paranasal sinuses are well aerated. ? CT/CT head/brain wo IV con IMPRESSION: No acute intracranial pathology. Critical Care Time Critical Care Time Critical Care Time: Yes Total Critical Care Time: 30 Attestation: I have personally provided critical care time. Time includes review of lab data, radiology results, discussion with consultants, and monitoring for potential decompensation. Intervention performed as documented. Discharge Plan Discharge Clinical Impression: Headache, Hypertension Patient Disposition: Home, Self-Care Instructions: Hypertension (ED) Additional Instructions: Please follow-up with your primary care physician tomorrow. If you have any worsening or new symptoms, please return to the emergency room or call 911 Prescriptions: New hydrochlorothiazide 25 mg tablet 25 mg PO DAILY Qty: 90 0RF
[2022-10-22 22:06] VITALS: BP 171/104; PULSE 92; RESP 15; TEMP 36.6; O2SAT 97
[2022-10-22] MEDS: Metoclopramide HCl 10 MG TABLET PO (22:07)
[2022-10-22] MEDS: Butalb/Acetamin/Caff 50/325/40 TABLET 1 TAB PO (22:07)
[2022-10-22] MEDS: Labetalol HCL 100 MG TABLET PO (22:07)
[2022-10-22] MEDS: diphenhydrAMINE HCL 25 MG CAPSULE PO (22:07)
[2022-10-22 22:40] LABS: Troponin-I High Sensitivity 9.7 ng/L (<3.5-35.0)
--- NOTE | 2022-10-22 23:18 | MHC.EDTECH ---
PT RANG FOR A EVELIA NICK .
[2022-10-22 23:43] VITALS: BP 121/87; PULSE 70; RESP 16
[2022-10-22 23:51] VITALS: BP 117/96; PULSE 101; RESP 16; TEMP 36.6
--- NOTE | 2022-10-23 00:19 | PC.NURSE ---
Attempted to call [facility] to discuss discharge plans, there was no answer, I left a message.
--- NOTE | 2022-10-23 00:32 | PC.NURSE ---
Spoke with staff at [facility] who reported that pt was discharged from detox to come to [facility]. Pt requires a new admission which will not take place until after 8 AM 10/23. Pt will need to see CARE team who can order transportation in the morning. Pt is aware of the situation and is resting quietly in bed at this time.
[2022-10-23] MEDS: QUEtiapine Fumarate 200 MG TABLET PO ×2 (01:36→09:39)
[2022-10-23 04:00] VITALS: BP 129/95; PULSE 98; RESP 16; TEMP 36.7; O2SAT 98
--- NOTE | 2022-10-23 04:16 | MHC.EDTECH ---
0400 rounding done ,vitals sign taken ,pt asked and was given can of jacqueline ivania to drink .
[2022-10-23] MEDS: LORazepam 1 MG TABLET PO (04:46)
[2022-10-23 06:00] VITALS: BP 138/94; PULSE 102; RESP 16; TEMP 36.6; O2SAT 98
[2022-10-23 07:13] VITALS: BP 147/89; PULSE 93; RESP 19; TEMP 36.6; O2SAT 95
--- NOTE | 2022-10-23 09:04 | MHC.RECOVRN ---
Multiple attempts to call [facility] to confirm bed availability prior to transporting pt back to [facility], all unsuccessful. Voicemail left. Awaiting return call. RN aware.
--- NOTE | 2022-10-23 09:50 | PC.NURSE ---
recovery team (michael) at bedside pt aware of plan of care.
[2022-10-23 10:07] VITALS: BP 154/99; PULSE 104; RESP 18; TEMP 36.5; O2SAT 93
--- NOTE | 2022-10-23 10:17 | MHC.RECOVRN ---
Spoke with intake at [facility], pt needs to be reviewed prior to be accepted back to [facility]. Pts information has been faxed, awaiting call back. RN and provider aware.
--- NOTE | 2022-10-23 12:34 | MHC.RECOVRN ---
Pt accepted to return to [facility] for an admission time of 1630. RN aware.
[2022-10-23 12:53] VITALS: BP 159/101; PULSE 97; RESP 19; TEMP 36.5; O2SAT 98
== END 2022-10-23 15:20 | disposition home or self-care (01) ==
PROVIDERS: Physician Assistant; Emergency Provider Emergency Medicine
DX: R51.9 Headache, unspecified (principal); I10 Essential (primary) hypertension
CPT/HCPCS: 36415; 70450; 80048; 80076; 81003; 83690; 83735; 84484; 85025; 93005; 99285

== ENCOUNTER 2022-10-23 19:27 | Emergency (ER) | payer OTHER, SELFPAY ==
--- NOTE | ~2022-10-23 | CT_ITS ---
EXAMINATION: CT ABDOMEN AND PELVIS WITHOUT CONTRAST CLINICAL INFORMATION: Abdominal pain. COMPARISON: None available. TECHNIQUE: Multidetector volumetric imaging was performed from the superior aspect of the liver through the pubic symphysis. Sagittal and coronal reformatted images were obtained on the technologist's workstation. This CT examination was performed using dose optimization techniques as appropriate, variously including the following: *Automated exposure control *Adjustment of mA and/or kV according to patient size (this includes techniques or standardized protocols for targeted exams where dose is matched to indication/reason for exam; i.e. extremities or head) *Use of iterative reconstruction technique DLP: 491 mGy-cm FINDINGS: LUNG BASES: No focal consolidation or pleural effusion. LIVER, GALLBLADDER, AND BILIARY TREE: Decreased attenuation of liver parenchyma suggesting hepatic steatosis. The liver is otherwise normal in size and shape. No discrete focal liver lesions in this limited noncontrast examination. No biliary ductal dilatation. The gallbladder is unremarkable with no evidence of radiopaque gallstones, gallbladder wall thickening, or obvious pericholecystic inflammatory changes. PANCREAS: Limited noncontrast examination, unremarkable. SPLEEN: Limited noncontrast examination, unremarkable. ADRENAL GLANDS: No adrenal mass. KIDNEYS AND URETERS: Limited noncontrast examination. No evidence of nephrolithiasis or hydronephrosis. No significant perinephric fat stranding. There is a simple fluid attenuating cyst in the anterior lower right kidney, for which no imaging follow-up is recommended. BLADDER: Unremarkable. GASTROINTESTINAL TRACT: Anterior abdominal wall hernia containing loops of small bowel. Upstream from this hernia the small bowel loops are mildly dilated, raising the possibility of some degree of obstruction. Surgical anastomosis noted in the rectosigmoid junction and in the left anterior upper abdomen. No pericolonic inflammatory changes. Moderate amount stool in the cecum as well as in the rectum. ABDOMINAL WALL: As above upper abdominal/supraumbilical hernia containing loops of small bowel. Midline surgical scar noted. Small bilateral fat-containing inguinal hernias. LYMPH NODES: No lymphadenopathy. VASCULAR: Scattered atherosclerotic disease. The abdominal aorta is normal in caliber. PELVIC VISCERA: No pelvic mass. OSSEOUS STRUCTURES: Degenerative changes of the spine. CT/CT abdomen pelvis wo IV con IMPRESSION: Multiple loops of small bowel are clumped and tethered into the anterior abdominal wall near a supraumbilical abdominal wall hernia. The hernia contains some of these bowel loops with mild upstream dilatation, raising the possibility of partial obstruction in the appropriate clinical context. Recommend correlation with physical examination. Hepatic steatosis.
[2022-10-23 19:46] VITALS: BP 145/97; PULSE 101; RESP 16; TEMP 37.1; O2SAT 98; BMI 25.2
--- NOTE | 2022-10-23 19:48 | ED.GENADULT ---
HPI - General Adult General Chief complaint: General Medical <RACHELE Huffman - Last Filed: 10/24/22 09:21> Stated complaint: high bp, hernia <RACHELE Huffman - Last Filed: 10/24/22 09:21> Time Seen by Provider: 10/23/22 20:31 <RACHELE Huffman - Last Filed: 10/24/22 09:21> Related Data Home medications: Home Medications ?Medication ?Instructions ?Recorded ?Confirmed buprenorphine 2 mg-naloxone 0.5 mg 1 film sublingual DAILY 10/23/22 07/09/23 sublingual film bupropion HCl 300 mg 24 hr tablet, 300 mg PO DAILY 10/23/22 07/09/23 extended release quetiapine 200 mg tablet 200 mg PO BEDTIME 10/23/22 07/09/23 atorvastatin 20 mg tablet 20 mg PO DAILY 07/09/23 07/09/23 dorzolamide 22.3 mg-timolol 6.8 1 drp ophthalmic (eye) BID 07/09/23 07/09/23 mg/mL eye drops gabapentin 300 mg capsule 300 mg PO TID PRN Pain 07/09/23 07/09/23 nicotine 21 mg/24 hr daily 1 patch topical DAILY 07/09/23 07/09/23 transdermal patch terbinafine HCl 250 mg tablet 250 mg PO DAILY 07/09/23 07/09/23 Previous Rx's ?Medication ?Instructions ?Recorded hydrochlorothiazide 25 mg tablet 25 mg PO DAILY #90 tabs 10/22/22 amlodipine 5 mg tablet 5 mg PO DAILY #90 tabs 07/13/23 hydroxyzine HCl 50 mg tablet 50 mg PO Q6H PRN 07/13/23 Anxiety/Restlessness #60 tabs thiamine HCl (vitamin B1) 100 mg 100 mg PO DAILY #90 tabs 07/13/23 tablet <RACHELE Huffman - Last Filed: 10/24/22 09:21> Allergies/adverse reactions: Allergies Allergy/AdvReac Type Severity Reaction Status Date / Time sulfamethoxazole Allergy Nausea and Verified 10/25/22 07:29 [From Bactrim] Vomiting trimethoprim [From Bactrim] Allergy Nausea and Verified 10/25/22 07:29 Vomiting <RACHELE Huffman Last Filed: 10/24/22 09:21> [facility] Past Medical History Medical History: Medical History Hx of intravenous drug use in remission Depression <RACHELE Huffman - Last Filed: 10/24/22 09:21> Social History Social History: Social History Household Members: Family Housing: Apartment Do you presently have visiting nurse or other home services: No Alcohol intake: current Alcohol intake frequency: 3 or more drinks per day Alcohol type: hard liquor Comment: Pt refusing alarm Patient Tobacco Use Status: Tobacco use Unknown Substance Use Type: Marijuana <RACHELE Huffman - Last Filed: 10/24/22 09:21> Physical Exam ED Vital Signs: Vital Signs - 24 hr 10/23/22 19:46 10/23/22 20:00 10/23/22 22:00 Temperature 98.7 F 97.6 F 97.7 F Pulse Rate 101 H 94 93 Respiratory Rate 16 20 19 Blood Pressure 145/97 H 138/110 H 136/107 H Pulse Oximetry 98 98 98 Oxygen Delivery Method Room Air Room Air Room Air BMI result Body Mass Index 25.2 <RACHELE Huffman - Last Filed: 10/24/22 09:21> Vital Signs - 24 hr 10/23/22 19:46 10/23/22 20:00 10/23/22 22:00 Temperature 98.7 F 97.6 F 97.7 F Pulse Rate 101 H 94 93 Respiratory Rate 16 20 19 Blood Pressure 145/97 H 138/110 H 136/107 H Pulse Oximetry 98 98 98 Oxygen Delivery Method Room Air Room Air Room Air BMI result Body Mass Index 25.2 <ABDOULAYE Tejeda-BC - Last Filed: 04/27/24 20:42> Course Course Course Narrative: This is an RME: Additional HPI, ROS, PE not included below will be deferred to primary provider. This is a 57 year a past history of hypertension and alcohol abuse, who presents to the emergency department with complaints of abdominal pain, nausea, and elevated BP readings since last night. Patient states that he has been trying to get into detox for alcohol, was seen at [facility] but they declined his admitted because of the abdominal pain he has been having. On examination, patient has obvious abdominal scarring - reports multiple bowel resections, performed at [facility]. Abdomen is soft, tenderness throughout the entire abdomen, with multiple abdominal hernias present. Pt tachycardic at 101, bp 145/97, pt is stable, can return back to waiting room until bed becomes available in the main ER. Plan: Labs, UA ordered. <RACHELE Huffman - Last Filed: 10/24/22 09:21> Reevaluation(s) Reevaluation #1: CT scan of abdomen shows multiple loops of small bowel that are clumped and letter it in to the anterior abdominal wall near supraumbilical abdominal hernia. Hernia contained some of these bowel loops with mild upstream dilation raising the possibility of partial obstructions. Call placed to on-call surgeon, case discussed with her. Patient has no nausea, vomiting. No tenderness. Reports to be Constipated. Will send patient home with better bowel regimen. Patient will follow-up with his GI at [facility] as well as the surgeon. He was instructed to return if he experience nausea, vomiting inability to move his bowels. <ABDOULAYE Tejeda-SANTIAGO - Last Filed: 04/27/24 20:42> Medications Administered Discontinued Medications Generic Name Dose Route Start Last Admin Trade Name Freq PRN Reason Stop Dose Admin Docusate Sodium 200 mg 10/23/22 21:48 10/23/22 22:29 Docusate Sodium 100 Mg Capsule PO 10/23/22 21:49 200 mg ONCE ONE Administration <RACHELE Huffman - Last Filed: 10/24/22 09:21> Medications Administered Discontinued Medications Generic Name Dose Route Start Last Admin Trade Name Freq PRN Reason Stop Dose Admin Docusate Sodium 200 mg 10/23/22 21:48 10/23/22 22:29 Docusate Sodium 100 Mg Capsule PO 10/23/22 21:49 200 mg ONCE ONE Administration <ABDOULAYE Tejeda-BC - Last Filed: 04/27/24 20:42> Medical Decision Making Medical Decision Making MDM Narrative: Triage note This is a 57 year a past history of hypertension and alcohol abuse, who presents to the emergency department with complaints of abdominal pain, nausea, and elevated BP readings since last night. Patient states that he has been trying to get into detox for alcohol, was seen at [facility] but they declined his admitted because of the abdominal pain he has been having. On examination, patient has obvious abdominal scarring - reports multiple bowel resections, performed at [facility]. Abdomen is soft, tenderness throughout the entire abdomen, with multiple abdominal hernias present. Pt tachycardic at 101, bp 145/97, pt is stable, can return back to waiting room until bed becomes available in the main ER. Plan: Labs, UA ordered. CT scan of abdomen <ABDOULAYE Tejeda- - Last Filed: 04/27/24 20:42> Lab Data Result Diagrams: 10/23/22 20:06 10/23/22 20:06 <RACHELE Huffman - Last Filed: 10/24/22 09:21> Labs: Lab Results 10/23/22 10/23/22 Range/Units 20:06 21:06 WBC 11.0 H (4.8-10.8) X10*3/uL RBC 5.12 (4.60-5.80) X10*6/uL Hgb 17.0 (14.0-18.0) g/dl Hct 45.7 (42.0-52.0) % MCV 89.3 (80.0-98.0) fL MCH 33.2 H (27.0-33.0) pg MCHC 37.2 H (31.0-36.0) g/dl RDW 12.1 (11.0-16.0) % Plt Count 254 (160-400) X10*3/uL MPV 8.7 L (9.4-12.4) fL Immature Gran % (Auto) 0.4 (0.0-0.4) % Neut % (Auto) 78.4 H (45-73) % Lymph % (Auto) 11.9 L (20-40) % [place] % (Auto) 7.3 (2-11) % Eos % (Auto) 0.9 (0-4) % Baso % (Auto) 1.1 (0-2) % Lymph # (Auto) 1.3 (1.2-4.9) X10*3/uL [place] # (Auto) 0.8 (0.1-1.2) X10*3/uL Eos # (Auto) 0.1 (0.0-0.4) X10*3/uL Baso # (Auto) 0.1 (0.0-0.2) X10*3/uL Abs Immat Gran (auto) 0.04 H (0.00-0.03) X10*3/uL Absolute Neuts (auto) 8.6 H (2.0-8.3) x10*3/uL Absolute Nucleated RBC 0.000 (0.0-0.012) X10*3/uL Nucleated RBC % (auto) 0.0 (0.0-0.2) /100WBC Sodium 138 (135-145) mmol/L Potassium 3.6 (3.3-5.1) mmol/L Chloride 101 (96-108) mmol/L Carbon Dioxide 23 (22-29) mmol/L Anion Gap 18 (12-20) BUN 9 (9-16) mg/dL Creatinine 0.98 (0.5-1.4) mg/dL Estim Creat Clear Calc 95.1 Estimated GFR > 60 Random Glucose 114 (60-115) mg/dL Calcium 9.4 D (8.4-10.2) mg/dL Magnesium 2.0 (1.6-2.6) mg/dL Total Bilirubin 1.9 H (0.0-1.0) mg/dL Direct Bilirubin 0.5 (0.0-0.5) mg/dL AST 40 H (5-37) U/L ALT 37 (0-40) U/L Alkaline Phosphatase 86 (39-117) U/L Total Protein 7.6 (6.5-8.0) g/dL Albumin 4.6 (3.5-5.0) g/dL Lipase 13 (8-78) U/L Urine Color Yellow Urine Appearance Clear Urine pH 6.5 (5.0-9.0) Ur Specific [place] <= 1.005 (1.005-1.025) Urine Protein Negative (Neg-Trace) mg/dL Urine Glucose (UA) Negative (Negative) mg/dL Urine Ketones Negative (Negative) mg/dL Urine Blood Negative (Negative) Urine Nitrite Negative (Negative) Ur Leukocyte Esterase Small (1+) H (Negative) Urine RBC 0-2 (0-2) /HPF Urine WBC 0-5 (0-5) /HPF Ur Squamous Epith Cells 0-2 (0-2) /HPF Urine Bacteria None Seen (None Seen) Hyaline Casts 0-2 (0-2) /LPF Ethyl Alcohol 103 mg/dL <RACHELE Huffman - Last Filed: 10/24/22 09:21> Lab Results 10/23/22 10/23/22 Range/Units 20:06 21:06 WBC 11.0 H (4.8-10.8) X10*3/uL RBC 5.12 (4.60-5.80) X10*6/uL Hgb 17.0 (14.0-18.0) g/dl Hct 45.7 (42.0-52.0) % MCV 89.3 (80.0-98.0) fL MCH 33.2 H (27.0-33.0) pg MCHC 37.2 H (31.0-36.0) g/dl RDW 12.1 (11.0-16.0) % Plt Count 254 (160-400) X10*3/uL MPV 8.7 L (9.4-12.4) fL Immature Gran % (Auto) 0.4 (0.0-0.4) % Neut % (Auto) 78.4 H (45-73) % Lymph % (Auto) 11.9 L (20-40) % [place] % (Auto) 7.3 (2-11) % Eos % (Auto) 0.9 (0-4) % Baso % (Auto) 1.1 (0-2) % Lymph # (Auto) 1.3 (1.2-4.9) X10*3/uL [place] # (Auto) 0.8 (0.1-1.2) X10*3/uL Eos # (Auto) 0.1 (0.0-0.4) X10*3/uL Baso # (Auto) 0.1 (0.0-0.2) X10*3/uL Abs Immat Gran (auto) 0.04 H (0.00-0.03) X10*3/uL Absolute Neuts (auto) 8.6 H (2.0-8.3) x10*3/uL Absolute Nucleated RBC 0.000 (0.0-0.012) X10*3/uL Nucleated RBC % (auto) 0.0 (0.0-0.2) /100WBC Sodium 138 (135-145) mmol/L Potassium 3.6 (3.3-5.1) mmol/L Chloride 101 (96-108) mmol/L Carbon Dioxide 23 (22-29) mmol/L Anion Gap 18 (12-20) BUN 9 (9-16) mg/dL Creatinine 0.98 (0.5-1.4) mg/dL Estim Creat Clear Calc 95.1 Estimated GFR > 60 Random Glucose 114 (60-115) mg/dL Calcium 9.4 D (8.4-10.2) mg/dL Magnesium 2.0 (1.6-2.6) mg/dL Total Bilirubin 1.9 H (0.0-1.0) mg/dL Direct Bilirubin 0.5 (0.0-0.5) mg/dL AST 40 H (5-37) U/L ALT 37 (0-40) U/L Alkaline Phosphatase 86 (39-117) U/L Total Protein 7.6 (6.5-8.0) g/dL Albumin 4.6 (3.5-5.0) g/dL Lipase 13 (8-78) U/L Urine Color Yellow Urine Appearance Clear Urine pH 6.5 (5.0-9.0) Ur Specific [place] <= 1.005 (1.005-1.025) Urine Protein Negative (Neg-Trace) mg/dL Urine Glucose (UA) Negative (Negative) mg/dL Urine Ketones Negative (Negative) mg/dL Urine Blood Negative (Negative) Urine Nitrite Negative (Negative) Ur Leukocyte Esterase Small (1+) H (Negative) Urine RBC 0-2 (0-2) /HPF Urine WBC 0-5 (0-5) /HPF Ur Squamous Epith Cells 0-2 (0-2) /HPF Urine Bacteria None Seen (None Seen) Hyaline Casts 0-2 (0-2) /LPF Ethyl Alcohol 103 mg/dL <ISAMAR Tejeda - Last Filed: 04/27/24 20:42> Discharge Plan Discharge Clinical Impression: Constipation, Hernia of abdominal wall <RACHELE Huffman - Last Filed: 10/24/22 09:21> Patient Disposition: Home, Self-Care <RACHELE Huffman - Last Filed: 10/24/22 09:21> Instructions: Constipation (ED), Ventral Hernia (ED) <RACHELE uHffman - Last Filed: 10/24/22 09:21> Additional Instructions: You were seen here today to be evaluated for hernia. CT scan showed multiple surgical scars that could contribute to your constipation. Please make sure that you empty her bowels completely every day. Please follow-up with your analytics specialist and your surgeon as well as your primary care provider. Return to emergency department if you will have nausea or vomiting or will experience increase in abdominal pain or discomfort. Make sure that you move your bowels daily. You will be getting a script for stool softeners and MiraLax to help you move your bowels better. <RACHELE Huffman - Last Filed: 10/24/22 09:21> Prescriptions: No Action hydrochlorothiazide 25 mg tablet 25 mg PO DAILY Qty: 90 0RF quetiapine 200 mg tablet 200 mg PO BEDTIME bupropion HCl 300 mg tablet extended release 24 hr 300 mg PO DAILY buprenorphine-naloxone 2-0.5 mg film 1 film sublingual DAILY atorvastatin 20 mg tablet 20 mg PO DAILY terbinafine HCl 250 mg tablet 250 mg PO DAILY nicotine 21 mg/24 hr patch 24 hour 1 patch topical DAILY gabapentin 300 mg capsule 300 mg PO TID PRN (Reason: Pain) dorzolamide-timolol 22.3-6.8 mg/mL drops 1 drp ophthalmic (eye) BID hydroxyzine HCl 50 mg Tablet 50 mg PO Q6H PRN (Reason: Anxiety/Restlessness) Qty: 60 0RF amlodipine 5 mg Tablet 5 mg PO DAILY Qty: 90 0RF Protocol: Hold for SBP< HOLD for SBP < : 90 thiamine HCl (vitamin B1) 100 mg tablet 100 mg PO DAILY Qty: 90 0RF <RACHELE Huffman - Last Filed: 10/24/22 09:21> Referrals: Vandana Zamora MD [Primary Care Provider] - <RACHELE Huffman - Last Filed: 10/24/22 09:21> Interventions: ED Discharge Assessment Last Done: 10/23/22 22:37 <RACHELE Huffman - Last Filed: 10/24/22 09:21> Discharge Date/Time: 10/23/22 22:39 <RACHELE Huffman Last Filed: 10/24/22 09:21> Print Language: Albanian <RACHELE Huffman - Last Filed: 10/24/22 09:21>
[2022-10-23 20:00] VITALS: BP 138/110; PULSE 94; RESP 20; TEMP 36.4; O2SAT 98
[2022-10-23 20:10] LABS: MANUAL DIFF FLAG NO
[2022-10-23 20:11] LABS: Basophils Absolute Auto 0.1 X10*3/uL (0.0-0.2); Basophils Percent Auto 1.1 % (0-2); Eosinophils Absolute Auto 0.1 X10*3/uL (0.0-0.4); Eosinophils Percent Auto 0.9 % (0-4); Hematocrit 45.7 % (42.0-52.0); Imm Gran Abs Auto 0.04 X10*3/uL (0.00-0.03); Imm Gran Pct Auto 0.4 % (0.0-0.4); Lymphocytes Absolute Auto 1.3 X10*3/uL (1.2-4.9); Lymphocytes Percent Auto 11.9 % (20-40); Mean Corpuscular HGB Conc 37.2 g/dl (31.0-36.0); Mean Corpuscular Hemoglobin 33.2 pg (27.0-33.0); Mean Corpuscular Volume 89.3 fL (80.0-98.0); Mean Platelet Volume 8.7 fL (9.4-12.4); Monocytes Absolute Auto 0.8 X10*3/uL (0.1-1.2); Monocytes Percent Auto 7.3 % (2-11); Neutrophils Absolute Auto 8.6 x10*3/uL (2.0-8.3); Neutrophils Percent Auto 78.4 % (45-73); Platelet Count 254 X10*3/uL (160-400); Red Blood Count 5.12 X10*6/uL (4.60-5.80); Red Cell Distribution Width 12.1 % (11.0-16.0)
[2022-10-23 20:25] LABS: Alanine Aminotransferase 37 U/L (0-40); Albumin Level 4.6 g/dL (3.5-5.0); Alkaline Phosphatase 86 U/L (39-117); Anion Gap 18 (12-20); Aspartate Amino Transferase 40 U/L (5-37); Bilirubin Direct 0.5 mg/dL (0.0-0.5); Bilirubin Total 1.9 mg/dL (0.0-1.0); Blood Urea Nitrogen 9 mg/dL (9-16); Calcium 9.4 mg/dL (8.4-10.2); Carbon Dioxide 23 mmol/L (22-29); Chloride 101 mmol/L (96-108); Creatinine Clr Calc Pharmacy 95.1; Estimated Glomerular Filt Rate > 60; Ethanol 103 mg/dL; Glucose Random 114 mg/dL (60-115); Lipase 13 U/L (8-78); Potassium 3.6 mmol/L (3.3-5.1); Sodium 138 mmol/L (135-145); Total Protein 7.6 g/dL (6.5-8.0)
--- NOTE | 2022-10-23 20:46 | PC.NURSE ---
pt c/o hernia pain also trying to enter into detox for alc abuse/dependency
--- NOTE | 2022-10-23 20:47 | PC.NURSE ---
aox4 no apparent distress resting quietly
[2022-10-23 21:23] LABS: Appearance Urine Clear; Color Urine Yellow; Glucose Urine UA Negative (Negative); Leukocyte Esterase Urine Small (1+) (Negative); Nitrite Urine Negative (Negative); PH 6.5 (5.0-9.0); Specific Gravity - Urine <= 1.005 (1.005-1.025); UMIC TRIGGER UACC YES; Urine Blood Negative (Negative); Urine Ketones Negative (Negative); Urine Protein Negative (Neg-Trace)
[2022-10-23 21:40] LABS: Bacteria Urine None Seen (None Seen); Hyaline Casts Urine 0-2 /LPF (0-2); RBC Urine 0-2 /HPF (0-2); Squamous Epithelial Cell Urine 0-2 /HPF (0-2); UACC Culture Trigger YES; WBC Urine 0-5 /HPF (0-5)
[2022-10-23 22:00] VITALS: BP 136/107; PULSE 93; RESP 19; TEMP 36.5; O2SAT 98
[2022-10-23] MEDS: Docusate Sodium 100 MG CAPSULE 200 MG PO (22:29)
--- NOTE | 2022-10-23 22:37 | PC.NURSE ---
Discharge instructions given/explained to pt No apparent distress aox4 ambulates safely/independently
== END 2022-10-23 22:39 | disposition home or self-care (01) ==
PROVIDERS: Physician Assistant Medical; Emergency Provider Internal Medicine; PCP Family Medicine
DX: K59.00 Constipation, unspecified (principal); K43.9 Ventral hernia without obstruction or gangrene; F11.20 Opioid dependence, uncomplicated; F10.10 Alcohol abuse, uncomplicated; Y90.5 Blood alcohol level of 100-119 mg/100 ml; I10 Essential (primary) hypertension; Z79.899 Other long term (current) drug therapy
CPT/HCPCS: 36415; 74176; 80048; 80076; 81001; 82077; 83690; 83735; 85025; 87086; 99284

== ENCOUNTER 2022-10-27 03:51 | Emergency (ER) | payer OTHER, SELFPAY ==
[2022-10-27] VITALS (7 sets, daily range): BP systolic 107–160; BP diastolic 71–95; PULSE 103–140; RESP 11–20; TEMP 36.4–36.9; O2SAT 93–98; BMI 25.1
--- NOTE | 2022-10-27 | ECG_ITS ---
Test Reason : ETOH/HIGH HR Blood Pressure : / mmHG Vent. Rate : 126 BPM Atrial Rate : 126 BPM P-R Int : 138 ms QRS Dur : 068 ms QT Int : 322 ms P-R-T Axes : 070 013 082 degrees QTc Int : 466 ms Sinus tachycardia Otherwise normal ECG When compared with ECG of 22-OCT-2022 21:59, No significant change was found Referred By: Generic ED Physician Electronically Signed By:DOMI COOPER MD
--- NOTE | 2022-10-27 04:49 | PC.NURSE ---
Pt A&Ox4, calm and cooperative, denies any pain, reports he want detox from alcohol miss use. States last drink was one hour prior to arrival, drinks 5-6 vodka nips daily. CIWA score 5, Pt placed on bedside monitor, tachy in the 120s. Pt denies SI/HI, auditory/visual hallucinations. Will CTM.
[2022-10-27 04:51] LABS: Basophils Absolute Auto 0.1 X10*3/uL (0.0-0.2); Eosinophils Absolute Auto 0.1 X10*3/uL (0.0-0.4); Eosinophils Percent Auto 1.3 % (0-4); Hematocrit 45.5 % (42.0-52.0); Hemoglobin 16.7 g/dl (14.0-18.0); Imm Gran Abs Auto 0.02 X10*3/uL (0.00-0.03); Imm Gran Pct Auto 0.2 % (0.0-0.4); Lymphocytes Absolute Auto 1.8 X10*3/uL (1.2-4.9); MANUAL DIFF FLAG NO; Mean Corpuscular HGB Conc 36.7 g/dl (31.0-36.0); Mean Corpuscular Hemoglobin 32.9 pg (27.0-33.0); Mean Corpuscular Volume 89.6 fL (80.0-98.0); Mean Platelet Volume 8.5 fL (9.4-12.4); Monocytes Absolute Auto 0.3 X10*3/uL (0.1-1.2); Monocytes Percent Auto 3.7 % (2-11); Neutrophils Absolute Auto 6.1 x10*3/uL (2.0-8.3); Neutrophils Percent Auto 72.8 % (45-73); Platelet Count 247 X10*3/uL (160-400); Red Blood Count 5.08 X10*6/uL (4.60-5.80); Red Cell Distribution Width 12.2 % (11.0-16.0); White Blood Count 8.4 X10*3/uL (4.8-10.8)
[2022-10-27 05:19] LABS: Alanine Aminotransferase 34 U/L (0-40); Albumin Level 4.2 g/dL (3.5-5.0); Alkaline Phosphatase 84 U/L (39-117); Anion Gap 23 (12-20); Aspartate Amino Transferase 42 U/L (5-37); Bilirubin Total 0.6 mg/dL (0.0-1.0); Blood Urea Nitrogen 11 mg/dL (9-16); Calcium 8.5 mg/dL (8.4-10.2); Carbon Dioxide 19 mmol/L (22-29); Chloride 106 mmol/L (96-108); Creatinine Clr Calc Pharmacy 95.1; Estimated Glomerular Filt Rate > 60; Ethanol 299 mg/dL; Glucose Random 117 mg/dL (60-115); Potassium 3.7 mmol/L (3.3-5.1); Sodium 144 mmol/L (135-145); Total Protein 7.2 g/dL (6.5-8.0)
[2022-10-27 06:23] LABS: Amphetamine Screen Urine Not Detected (Not Detect); Barbiturates, Urine POSITIVE (Not Detect); Benzodiazepines Screen Urine POSITIVE (Not Detect); Cannabinoid Screen Urine POSITIVE (Not Detect); Cocaine Screen Urine Not Detected (Not Detect); Fentanyl, urine Not Detected (Not Detect); Opiate Screen Urine Not Detected (Not Detect); Phencyclidine Screen Urine Not Detected (Not Detect)
--- NOTE | 2022-10-27 06:56 | ED_ITS ---
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 drinks 20 nips daily. Last drink several hours prior to arrival. No additional substance use. Patient reports has been trying to get into detox for several days but has been unsuccessful. Patient reports feeling irritable, anxious, shaking and headache. He has been able to eat and drink. <Roseline Montes De Oca NP - Last Filed: 10/27/22 09:13> Related Data Home Medications: Home Medications Medication Instructions Recorded Confirmed buprenorphine 2 mg-naloxone 0.5 mg 2 mg sublingual DAILY 10/23/22 10/27/22 sublingual film bupropion HCl 300 mg 24 hr tablet, 300 mg PO QAM 10/23/22 10/27/22 extended release nicotine 14 mg/24 hr daily 1 patch topical DAILY 10/23/22 10/27/22 transdermal patch quetiapine 200 mg tablet 200 mg PO DAILY 10/23/22 10/27/22 Previous Rx's Medication Instructions Recorded ondansetron 4 mg disintegrating 4 mg PO Q6H PRN nausea and 03/16/22 tablet vomiting #10 tabs hydrochlorothiazide 25 mg tablet 25 mg PO DAILY #90 tabs 10/22/22 docusate sodium 100 mg capsule 100 mg PO DAILY #20 caps 10/23/22 polyethylene glycol 3350 17 gram 17 g PO DAILY #30 ea 10/23/22 oral powder packet (Miralax) <Roseline Montes De Oca NP - Last Filed: 10/27/22 09:13> Allergies/Adverse Reactions: Allergies Allergy/AdvReac Type Severity Reaction Status Date / Time sulfamethoxazole Allergy Nausea and Verified 10/25/22 07:29 [From Bactrim] Vomiting trimethoprim [From Bactrim] Allergy Nausea and Verified 10/25/22 07:29 Vomiting <Roseline Montes De Oca NP - Last Filed: 10/27/22 09:13> Review of Systems Review of Systems: Yes all other systems are reviewed and are negative <Roseline Montes De Oca NP - Last Filed: 10/27/22 09:13> Constitutional: Constitutional: Reports no additional constitutional complaints, Denies body ache(s), Denies chills, Denies fever(s), Reports headache(s) and Denies weakness <Roseline Montes De Oca NP - Last Filed: 10/27/22 09:13> Eyes: Eyes: Reports no additional eye complaints and Denies change in vision <Roseline Montes De Oca NP - Last Filed: 10/27/22 09:13> ENT: Reports system reviewed and no additional complaints, except as documented, Denies dizziness, Reports headache(s), Denies nasal congestion, Denies nasal discharge and Denies neck pain <Roseline Montes De Oca NP - Last Filed: 10/27/22 09:13> Cardiovascular: Cardiovascular: Reports no additional cardiovascular complaints, Denies chest pain, Denies leg edema and Denies dyspnea <Roseline Montes De Oca NP - Last Filed: 10/27/22 09:13> Respiratory: Respiratory: Reports no additional respiratory complaints, Denies cough and Denies dyspnea <Roseline Montes De Oca NP - Last Filed: 10/27/22 09:13> Gastrointestinal: Gastrointestinal: Reports no additional gastrointestinal complaints, Denies abdominal pain, Denies diarrhea, Reports nausea and Denies vomiting <Roseline Montes De Oca NP - Last Filed: 10/27/22 09:13> Genitourinary: Genitourinary: Denies urinary incontinence <Roseline Montes De Oca NP - Last Filed: 10/27/22 09:13> Musculoskeletal: Musculoskeletal: Reports no additional musculoskeletal complaints, Denies back pain, Denies arthralgias, Denies joint swelling, Denies neck pain, Denies numbness and Denies tingling <Roseline Montes De Oca NP - Last Filed: 10/27/22 09:13> Integumentary/Breasts: Skin/Breast: Reports system reviewed and no additional complaints, except as docu and Denies rash <Roseline Montes De Oca NP - Last Filed: 10/27/22 09:13> Neurologic: Reports system reviewed and no additional complaints, except as documented, Denies dizziness, Reports headache(s), Denies numbness, Denies tingling and Denies weakness <Roseline Montes De Oca NP - Last Filed: 10/27/22 09:13> Psychiatric: Psychiatric: Reports anxiety <Roseline Montes De Oca NP - Last Filed: 10/27/22 09:13> PMFSH Past Medical History Attestation statement: The following information was validated with the patient. <Roseline Montes De Oca NP - Last Filed: 10/27/22 09:13> Source: old records reviewed and nursing notes reviewed <Roseline Montes De Oca NP - Last Filed: 10/27/22 09:13> Medical History: Medical History Depression Hx of intravenous drug use in remission <Roseline Montes De Oca NP - Last Filed: 10/27/22 09:13> Social History Social History: Social History Alcohol intake: current Alcohol intake frequency: 3 or more drinks per day Alcohol type: hard liquor Smoked in Last 30 Days: Yes Use of substances other than those prescribed or required for medical reasons: Yes Substance Use Type: Marijuana Advance Directives: No Advance Directives Information Provided: Yes <Roseline Montes De Oca NP - Last Filed: 10/27/22 09:13> Physical Exam ED Vital Signs: Vital Signs - 24 hr 10/27/22 04:18 10/27/22 04:27 10/27/22 04:48 Temperature 97.7 F 97.9 F Pulse Rate 140 H 122 H 119 H Respiratory Rate 20 11 L 14 Blood Pressure 107/79 121/88 132/82 Pulse Oximetry 97 93 Oxygen Delivery Method Room Air Room Air Room Air 05/03/23 06:00 10/27/22 08:00 10/27/22 10:35 Temperature 98.0 F 97.6 F 98.4 F Pulse Rate 119 H 111 H 103 H Respiratory Rate 12 15 16 Blood Pressure 113/71 108/80 160/95 H Pulse Oximetry 94 97 96 Oxygen Delivery Method Room Air Room Air Room Air 10/27/22 11:57 Temperature 97.6 F Pulse Rate 120 H Respiratory Rate 12 Blood Pressure 143/91 H Pulse Oximetry 98 Oxygen Delivery Method Room Air BMI result Body Mass Index 25.1 <Roseline Montes De Oca NP - Last Filed: 10/27/22 09:13> Vital Signs - 24 hr 10/27/22 04:18 10/27/22 04:27 10/27/22 04:48 Temperature 97.7 F 97.9 F Pulse Rate 140 H 122 H 119 H Respiratory Rate 20 11 L 14 Blood Pressure 107/79 121/88 132/82 Pulse Oximetry 97 93 Oxygen Delivery Method Room Air Room Air Room Air 10/27/22 06:00 10/27/22 08:00 10/27/22 10:35 Temperature 98.0 F 97.6 F 98.4 F Pulse Rate 119 H 111 H 103 H Respiratory Rate 12 15 16 Blood Pressure 113/71 108/80 160/95 H Pulse Oximetry 94 97 96 Oxygen Delivery Method Room Air Room Air Room Air 10/27/22 11:57 Temperature 97.6 F Pulse Rate 120 H Respiratory Rate 12 Blood Pressure 143/91 H Pulse Oximetry 98 Oxygen Delivery Method Room Air BMI result Body Mass Index 25.1 <Gaby Fuentes MD - Last Filed: 10/27/22 15:03> Const General: cooperative, healthy appearing, comfortable and no acute distress <Roseline Montes De Oca NP - Last Filed: 10/27/22 09:13> Orientation/consciousness: patient oriented x3 <Roseline Montes De Oca NP - Last Filed: 10/27/22 09:13> Limitations: no limitations <Roseline Montes De Oca NP - Last Filed: 10/27/22 09:13> HENMT Head: Yes normal to inspection <Roseline Montes De Oca NP - Last Filed: 10/27/22 09:13> Ears: hearing grossly normal bilaterally <Roseline Montes De Oca COUNTY ADMINISTRATOR - Last Filed: 10/27/22 09:13> Eyes General: appearance normal, both eyes and all related structures <Roseline Montes De Oca COUNTY ADMINISTRATOR - Last Filed: 10/27/22 09:13> Pupils: Equal, round and reactive pupils present <Roseline Montes De Oca COUNTY ADMINISTRATOR - Last Filed: 10/27/22 09:13> Neck Neck: Yes normal visual inspection <Roseline Montes De Oca COUNTY ADMINISTRATOR - Last Filed: 10/27/22 09:13> Chest Chest palpation & inspection: normal inspection of the chest <Roseline Montes De Oca COUNTY ADMINISTRATOR - Last Filed: 10/27/22 09:13> Resp Effort & Inspection: normal respiratory effort <Roseline Montes De Oca COUNTY ADMINISTRATOR - Last Filed: 10/27/22 09 :13> Cardio Rate: tachycardic <Roseline Montes De Oca COUNTY ADMINISTRATOR - Last Filed: 10/27/22 09:13> Rhythm: regular rhythm <Roseline Montes De Oca COUNTY ADMINISTRATOR - Last Filed: 10/27/22 09:13> Peripheral pulses: Peripheral pulses 2+ throughout <Roseline Montes De Oca COUNTY ADMINISTRATOR - Last Filed: 10/27/22 09:13> GI Inspection: Yes normal to inspection <Roseline Montes De Oca COUNTY ADMINISTRATOR - Last Filed: 10/27/22 09:13> General: Yes no CVA tenderness <Roseline Montes De Oca COUNTY ADMINISTRATOR - Last Filed: 10/27/22 09:13> Back/Spine/Pelvis Back: no CVA tenderness <Roseline Montes De Oca COUNTY ADMINISTRATOR - Last Filed: 10/27/22 09:13> Thoracic/Lumbar Spine: thoracic and lumbar spine normal to inspection <Roseline Montes De Oca COUNTY ADMINISTRATOR - Last Filed: 10/27/22 09:13> Skin General skin exam: no rashes or lesions noted <Roseline Montes De Oca COUNTY ADMINISTRATOR - Last Filed: 10/27/22 09:13> Neuro General: patient oriented x3 and moves all extremities <Roseline Montes De Oca COUNTY ADMINISTRATOR - Last Filed: 10/27/22 09:13> Cranial nerves: Yes Equal, round and reactive pupils present <Roseline Montes De Oca NP - Last Filed: 10/27/22 09:13> Extrem General: Yes normal to inspection <Roseline Montes De Oca NP - Last Filed: 10/27/22 09:13> Course Course Course Narrative: 0915-heart rate now 111. Patient feels improved. Reviewed lab. Plan for meeting with coach operator for possible detox <Roseline Montes De Oca NP - Last Filed: 10/27/22 09:13> Medical Decision Making Medical Decision Making MDM Narrative: Is a 57-year-old male who is here seeking detox from alcohol. Patient complains of headache, nausea, irritability and feeling anxious Patient tachycardic on arrival Likely secondary to alcohol withdrawal Tacky mucous members Will obtain labs, EKG Will give IV fluids, lorazepam Will consult care team once medically clear <Roseline Montes De Oca NP - Last Filed: 10/27/22 09:13> Is a 57-year-old male who is here seeking detox from alcohol. Patient complains of headache, nausea, irritability and feeling anxious Patient tachycardic on arrival Likely secondary to alcohol withdrawal Tacky mucous members Will obtain labs, EKG Will give IV fluids, lorazepam Will consult care team once medically clear 1502: Detox to set up at [facility] and patient's transportation has arrived. He is otherwise hemodynamically stable for transport to the detox facility. <Gaby Fuentes MD - Last Filed: 10/27/22 15:03> Differential Diagnosis Differential Diagnoses: The differential diagnosis associated with the presentation includes <Roseline Montes De Oca NP - Last Filed: 10/27/22 09:13> Lab Data Result Diagrams: 10/27/22 04:37 10/27/22 04:37 <Roseline Montes De Oca NP - Last Filed: 10/27/22 09:13> Labs: Lab Results 10/27/22 10/27/22 10/27/22 Range/Units 04:37 04:37 06:06 WBC 8.4 (4.8-10.8) X10*3/uL RBC 5.08 (4.60-5.80) X10*6/uL Hgb 16.7 (14.0-18.0) g/dl Hct 45.5 (42.0-52.0) % MCV 89.6 (80.0-98.0) fL MCH 32.9 (27.0-33.0) pg MCHC 36.7 H (31.0-36.0) g/dl RDW 12.2 (11.0-16.0) % Plt Count 247 (160-400) X10*3/uL MPV 8.5 L (9.4-12.4) fL Immature Gran % (Auto) 0.2 (0.0-0.4) % Neut % (Auto) 72.8 (45-73) % Lymph % (Auto) 21.0 (20-40) % [place] % (Auto) 3.7 (2-11) % Eos % (Auto) 1.3 (0-4) % Baso % (Auto) 1.0 (0-2) % Lymph # (Auto) 1.8 (1.2-4.9) X10*3/uL [place] # (Auto) 0.3 (0.1-1.2) X10*3/uL Eos # (Auto) 0.1 (0.0-0.4) X10*3/uL Baso # (Auto) 0.1 (0.0-0.2) X10*3/uL Abs Immat Gran (auto) 0.02 (0.00-0.03) X10*3/uL Absolute Neuts (auto) 6.1 (2.0-8.3) x10*3/uL Absolute Nucleated RBC 0.000 (0.0-0.012) X10*3/uL Nucleated RBC % (auto) 0.0 (0.0-0.2) /100WBC Sodium 144 (135-145) mmol/L Potassium 3.7 (3.3-5.1) mmol/L Chloride 106 (96-108) mmol/L Carbon Dioxide 19 L (22-29) mmol/L Anion Gap 23 H (12-20) BUN 11 (9-16) mg/dL Creatinine 0.98 (0.5-1.4) mg/dL Estim Creat Clear Calc 95.1 Estimated GFR > 60 Random Glucose 117 H (60-115) mg/dL Calcium 8.5 D (8.4-10.2) mg/dL Total Bilirubin 0.6 (0.0-1.0) mg/dL AST 42 H (5-37) U/L ALT 34 (0-40) U/L Alkaline Phosphatase 84 (39-117) U/L Total Protein 7.2 (6.5-8.0) g/dL Albumin 4.2 (3.5-5.0) g/dL Urine Opiates Screen Not Detected (Not Detect) Urine Fentanyl Screen Not Detected (Not Detect) Ur Barbiturates Screen POSITIVE H (Not Detect) Ur Phencyclidine Scrn Not Detected (Not Detect) Ur Amphetamines Screen Not Detected (Not Detect) U Benzodiazepines Scrn POSITIVE H (Not Detect) Urine Cocaine Screen Not Detected (Not Detect) U Marijuana (THC) Screen POSITIVE H (Not Detect) Ethyl Alcohol 299 mg/dL <Roseline Montes De Oca NP - Last Filed: 10/27/22 09:13> Lab Results 10/27/22 10/27/22 10/27/22 Range/Units 04:37 04:37 06:06 WBC 8.4 (4.8-10.8) X10*3/uL RBC 5.08 (4.60-5.80) X10*6/uL Hgb 16.7 (14.0-18.0) g/dl Hct 45.5 (42.0-52.0) % MCV 89.6 (80.0-98.0) fL MCH 32.9 (27.0-33.0) pg MCHC 36.7 H (31.0-36.0) g/dl RDW 12.2 (11.0-16.0) % Plt Count 247 (160-400) X10*3/uL MPV 8.5 L (9.4-12.4) fL Immature Gran % (Auto) 0.2 (0.0-0.4) % Neut % (Auto) 72.8 (45-73) % Lymph % (Auto) 21.0 (20-40) % [place] % (Auto) 3.7 (2-11) % Eos % (Auto) 1.3 (0-4) % Baso % (Auto) 1.0 (0-2) % Lymph # (Auto) 1.8 (1.2-4.9) X10*3/uL [place] # (Auto) 0.3 (0.1-1.2) X10*3/uL Eos # (Auto) 0.1 (0.0-0.4) X10*3/uL Baso # (Auto) 0.1 (0.0-0.2) X10*3/uL Abs Immat Gran (auto) 0.02 (0.00-0.03) X10*3/uL Absolute Neuts (auto) 6.1 (2.0-8.3) x10*3/uL Absolute Nucleated RBC 0.000 (0.0-0.012) X10*3/uL Nucleated RBC % (auto) 0.0 (0.0-0.2) /100WBC Sodium 144 (135-145) mmol/L Potassium 3.7 (3.3-5.1) mmol/L Chloride 106 (96-108) mmol/L Carbon Dioxide 19 L (22-29) mmol/L Anion Gap 23 H (12-20) BUN 11 (9-16) mg/dL Creatinine 0.98 (0.5-1.4) mg/dL Estim Creat Clear Calc 95.1 Estimated GFR > 60 Random Glucose 117 H (60-115) mg/dL Calcium 8.5 D (8.4-10.2) mg/dL Total Bilirubin 0.6 (0.0-1.0) mg/dL AST 42 H (5-37) U/L ALT 34 (0-40) U/L Alkaline Phosphatase 84 (39-117) U/L Total Protein 7.2 (6.5-8.0) g/dL Albumin 4.2 (3.5-5.0) g/dL Urine Opiates Screen Not Detected (Not Detect) Urine Fentanyl Screen Not Detected (Not Detect) Ur Barbiturates Screen POSITIVE H (Not Detect) Ur Phencyclidine Scrn Not Detected (Not Detect) Ur Amphetamines Screen Not Detected (Not Detect) U Benzodiazepines Scrn POSITIVE H (Not Detect) Urine Cocaine Screen Not Detected (Not Detect) U Marijuana (THC) Screen POSITIVE H (Not Detect) Ethyl Alcohol 299 mg/dL <Gaby Fuentes MD - Last Filed: 10/27/22 15:03> Independent Interpretation I performed an independent interpretation of an: EKG <Roseline Montes De Oca NP - Last Filed: 10/27/22 09:13> Interpretation: I independently reviewed the EKG which shows sinus tachycardia with rate of 126, normal FL, normal QRS, no QT <Roseline Montes De Oca NP - Last Filed: 10/27/22 09:13> Medications Administered Generic Name Dose Route Start Last Admin Trade Name Pamela PRN Reason Stop Dose Admin Buprenorphine/Naloxone 1 film 10/27/22 11:30 10/27/22 13:21 Buprenorphine/Naloxone 2/0.5mg Film SUBLINGUAL 1 film DAILY ANNALISA Administration Bupropion HCl 300 mg 10/27/22 11:30 10/27/22 13:21 Bupropion Hcl Xl 300 Mg Tab.Er.24h PO 300 mg DAILY ANNALISA Administration Docusate Sodium 100 mg 10/27/22 11:30 10/27/22 13:21 Docusate Sodium 100 Mg Capsule PO 100 mg DAILY ANNALISA Administration Hydrochlorothiazide 25 mg 10/27/22 11:30 10/27/22 13:21 Hydrochlorothiazide 25 Mg Tablet PO 25 mg DAILY ANNALISA Administration Protocol Polyethylene Glycol 17 gm 10/27/22 11:30 10/27/22 13:22 Polyethylene Glycol 3350 17 Gm Powd.Pack PO Not Given DAILY ANNALISA Quetiapine Fumarate 200 mg 10/27/22 11:45 10/27/22 13:21 Quetiapine Fumarate 200 Mg Tablet PO 200 mg DAILY ANNALISA Administration Discontinued Medications Generic Name Dose Route Start Last Admin Trade Name Pamela PRN Reason Stop Dose Admin Chlordiazepoxide HCl 25 mg 10/27/22 13:35 10/27/22 14:40 Chlordiazepoxide Hcl 25 Mg Capsule PO 10/27/22 13:36 25 mg ONCE ONE Administration Sodium Chloride 1,000 mls @ 999 mls/hr 10/27/22 06:48 10/27/22 08:41 Ns IV 10/27/22 07:48 Infused .Q1H1M STA Infusion Sodium Chloride 1,000 mls @ 999 mls/hr 10/27/22 07:52 10/27/22 08:31 Ns IV 10/27/22 08:52 Infused .Q1H1M STA Infusion Lorazepam 1 mg 10/27/22 06:48 10/27/22 07:17 Lorazepam 2 Mg/Ml Vial IVPUSH 10/27/22 06:49 1 mg STAT STA Administration Lorazepam 2 mg 10/27/22 07:52 10/27/22 08:21 Lorazepam 1 Mg Tablet PO 10/27/22 07:53 2 mg ONCE ONE Administration Nicotine 21 mg 10/27/22 09:25 10/27/22 10:39 Nicotine 21 Mg Patch.Td24 TRANSDERMA 10/27/22 09:26 21 mg ONCE ONE Administration <Roseline Montes De Oca, COUNTY ADMINISTRATOR - Last Filed: 10/27/22 09:13> Medications Administered Generic Name Dose Route Start Last Admin Trade Name Pamela PRN Reason Stop Dose Admin Buprenorphine/Naloxone 1 film 10/27/22 11:30 10/27/22 13:21 Buprenorphine/Naloxone 2/0.5mg Film SUBLINGUAL 1 film DAILY ANNALISA Administration Bupropion HCl 300 mg 10/27/22 11:30 10/27/22 13:21 Bupropion Hcl Xl 300 Mg Tab.Er.24h PO 300 mg DAILY ANNALISA Administration Docusate Sodium 100 mg 10/27/22 11:30 10/27/22 13:21 Docusate Sodium 100 Mg Capsule PO 100 mg DAILY ANNALISA Administration Hydrochlorothiazide 25 mg 10/27/22 11:30 10/27/22 13:21 Hydrochlorothiazide 25 Mg Tablet PO 25 mg DAILY ANNALISA Administration Protocol Polyethylene Glycol 17 gm 10/27/22 11:30 10/27/22 13:22 Polyethylene Glycol 3350 17 Gm Powd.Pack PO Not Given DAILY ANNALISA Quetiapine Fumarate 200 mg 10/27/22 11:45 10/27/22 13:21 Quetiapine Fumarate 200 Mg Tablet PO 200 mg DAILY ANNALISA Administration Discontinued Medications Generic Name Dose Route Start Last Admin Trade Name Pamela PRN Reason Stop Dose Admin Chlordiazepoxide HCl 25 mg 10/27/22 13:35 10/27/22 14:40 Chlordiazepoxide Hcl 25 Mg Capsule PO 10/27/22 13:36 25 mg ONCE ONE Administration Sodium Chloride 1,000 mls @ 999 mls/hr 10/27/22 06:48 10/27/22 08:41 Ns IV 10/27/22 07:48 Infused .Q1H1M STA Infusion Sodium Chloride 1,000 mls @ 999 mls/hr 10/27/22 07:52 10/27/22 08:31 Ns IV 10/27/22 08:52 Infused .Q1H1M STA Infusion Lorazepam 1 mg 10/27/22 06:48 10/27/22 07:17 Lorazepam 2 Mg/Ml Vial IVPUSH 10/27/22 06:49 1 mg STAT STA Administration Lorazepam 2 mg 10/27/22 07:52 10/27/22 08:21 Lorazepam 1 Mg Tablet PO 10/27/22 07:53 2 mg ONCE ONE Administration Nicotine 21 mg 10/27/22 09:25 10/27/22 10:39 Nicotine 21 Mg Patch.Td24 TRANSDERMA 10/27/22 09:26 21 mg ONCE ONE Administration <Gaby Fuentes MD - Last Filed: 10/27/22 15:03> Discharge Plan Discharge Clinical Impression: Alcoholic intoxication, Alcohol use disorder <Roseline Montes De Oca NP - Last Filed: 10/27/22 09:13> Patient Disposition: Xfer Other <Roseline Montes De Oca NP - Last Filed: 10/27/22 09:13> Instructions: Alcohol Intoxication (ED), Alcohol Use Disorder (ED) <Roseline Montes De Oca NP - Last Filed: 10/27/22 09:13> Additional Instructions: 1. Resume all home medications as prescribed. 2. Complete the entire detox process. Return to the ER for any worsening symptoms. <Roseline Montes De Oca NP - Last Filed: 10/27/22 09:13> Prescriptions: No Action ondansetron 4 mg tablet,disintegrating 4 mg PO Q6H PRN (Reason: nausea and vomiting) Qty: 10 0RF hydrochlorothiazide 25 mg tablet 25 mg PO DAILY Qty: 90 0RF nicotine 14 mg/24 hr patch 24 hour 1 patch topical DAILY quetiapine 200 mg tablet 200 mg PO DAILY bupropion HCl 300 mg tablet extended release 24 hr 300 mg PO QAM buprenorphine-naloxone 2-0.5 mg film 2 mg sublingual DAILY docusate sodium 100 mg capsule 100 mg PO DAILY Qty: 20 0RF polyethylene glycol 3350 [Miralax] 17 gram powder in packet 17 g PO DAILY Qty: 30 0RF <Roseline Montes De Oca NP - Last Filed: 10/27/22 09:13>
[2022-10-27] MEDS: 0.9 % Sodium Chloride 1,000 ML 999 ML IV ×2 (07:14→08:22)
[2022-10-27] MEDS: LORazepam 2 MG/ML VIAL 1 MG IVPUSH (07:17)
[2022-10-27] MEDS: LORazepam 1 MG TABLET 2 MG PO (08:21)
[2022-10-27] MEDS: Nicotine 21 MG PATCH.TD24 TRANSDERMA (10:39)
--- NOTE | 2022-10-27 11:39 | MHC.RECOVSUP ---
Met with pt in ED9 for potential ATS bed search. Pt reports drinking 10-20 nips a day and has been drinking for about 1 year. Pt shares he has been to [facility] back in February but that they wouldn't take him now due to his hernia. Pt informs he is currently on Suboxone that he gets from [facility]. Pt is interested in ATS and has no additional questions or concerns at this time.
[2022-10-27] MEDS: Buprenorphine/Naloxone 2/0.5mg FILM 1 FILM SUBLINGUAL (13:21)
[2022-10-27] MEDS: buPROPion HCl XL 300 MG TAB.ER.24H PO (13:21)
[2022-10-27] MEDS: Docusate Sodium 100 MG CAPSULE PO (13:21)
[2022-10-27] MEDS: hydroCHLOROthiazide 25 MG TABLET PO (13:21)
[2022-10-27] MEDS: QUEtiapine Fumarate 200 MG TABLET PO (13:21)
--- NOTE | 2022-10-27 13:28 | PC.NURSE ---
Pt in for Detox Bed search, recovery-team aware. Pt reports having a XL ABD. Hernia and claims he was not accepted to Detox in the past due this. Pt upper abd. is bulging. notified.
[2022-10-27] MEDS: chlordiazePOXIDE HCl 25 MG CAPSULE PO (14:40)
--- NOTE | 2022-10-27 15:12 | MHC.RECOVSUP ---
Pt accepted to [facility] and is on [facility] now.
== END 2022-10-27 15:21 | disposition other institution (70) ==
PROVIDERS: Emergency Provider Student in an Organized Health Care Education/Training Program
DX: F10.220 Alcohol dependence with intoxication, uncomplicated (principal); Y90.8 Blood alcohol level of 240 mg/100 ml or more; R51.9 Headache, unspecified; F41.9 Anxiety disorder, unspecified; Z79.899 Other long term (current) drug therapy
CPT/HCPCS: 36415; 80053; 80307; 85025; 93005; 96361; 96374; 99285; J2060

== ENCOUNTER 2023-07-08 19:36 | Inpatient (IN) | payer OTHER, SELFPAY ==
[2023-07-08 19:43] VITALS: BP 146/99; PULSE 110; RESP 16; TEMP 36.8; O2SAT 95; BMI 26.4
--- NOTE | 2023-07-08 20:17 | ED.ALCOHOL ---
HPI - Alcohol General Chief Complaint: ETOH/Substance Use Stated Complaint: leaving detox, heavy drinking Time Seen by Provider: 07/08/23 21:59 Source: patient Mode of arrival: ambulatory Limitations: no limitations History of Present Illness HPI narrative: 57 yo male with PMH of ETOH abuse - has been on 2 week huynh per his reports drinking about 20 nips of vodka a day last drink was this AM. He is feeling shaky and nervous. He had a seizure from withdrawal around 2017. He last went to detox in October. He notes he has a bed at [facility] in the AM and just wants help to get through the night he then states the bed is at [facility] and doesn't seem to know much about placement or timing of the bed MD complaint: alcohol withdrawal and desires rehab Last drink: Hours (ago) (12) Chronic alcohol use: Yes Previous visits for alcohol intoxication: Yes Recent trauma: No Associated symptoms: nausea and tremors Treatments prior to arrival: none Related Data Home Medications Medication Instructions Recorded Confirmed buprenorphine 2 mg-naloxone 0.5 mg 2 mg sublingual DAILY 10/23/22 10/27/22 sublingual film bupropion HCl 300 mg 24 hr tablet, 300 mg PO QAM 10/23/22 10/27/22 extended release nicotine 14 mg/24 hr daily 1 patch topical DAILY 10/23/22 10/27/22 transdermal patch quetiapine 200 mg tablet 200 mg PO DAILY 10/23/22 10/27/22 Previous Rx's Medication Instructions Recorded ondansetron 4 mg disintegrating 4 mg PO Q6H PRN nausea and 03/16/22 tablet vomiting #10 tabs hydrochlorothiazide 25 mg tablet 25 mg PO DAILY #90 tabs 10/22/22 docusate sodium 100 mg capsule 100 mg PO DAILY #20 caps 10/23/22 polyethylene glycol 3350 17 gram 17 g PO DAILY #30 ea 10/23/22 oral powder packet (Miralax) Allergies Allergy/AdvReac Type Severity Reaction Status Date / Time sulfamethoxazole Allergy Nausea and Verified 10/25/22 07:29 [From Bactrim] Vomiting trimethoprim [From Bactrim] Allergy Nausea and Verified 10/25/22 07:29 Vomiting Review of Systems Review of Systems: Constitutional : No Fever, No Chills, No Fatigue ENT/Mouth : No sore throat, No Rhinorrhea Eyes: No Eye Pain, No Swelling, No Redness Cardiovascular : No Chest Pain, No SOB, No Dyspnea on Exertion Respiratory : No Cough, No Sputum Gastrointestinal : pos Nausea, No Vomiting, No Diarrhea, No abdominal Pain Genitourinary : No Dysuria, No Urinary Frequency, No Hematuria, Musculoskeletal : No joint pain, No Myalgias, No Joint Swelling Skin : No Skin Lesions, No rash Neuro : No Weakness, No Numbness, No Dizziness, no Headache Psych : pos Anxiety/Panic, No Depression Heme/Lymph: No Bruising, No Bleeding,No Lymphadenopathy Endocrine : No Polyuria, No Polydipsia All other systems reviewed and are negative PMFSH Past Medical History Onset Date is defined in the Problem List Problems that require an onset date and time if occurred within 24 hrs of arrival to the ED Aortic Dissection and Rupture; Neurologic impairment; Cardiopulmonary Arrest; Endotracheal Intubation; Insertion or Replacement of Mechanical Circulatory Assist Device Medical History Hx of intravenous drug use in remission Depression Social History Social History Alcohol intake: current Alcohol intake frequency: 3 or more drinks per day Alcohol type: hard liquor Substance Use Type: Marijuana Advance Directives: No Advance Directives Information Provided: No Physical Exam ED Vital Signs: Vital Signs - 24 hr 07/08/23 19:43 07/08/23 22:43 Temperature 98.2 F Pulse Rate 110 H 99 Respiratory Rate 16 20 Blood Pressure 146/99 H 132/92 H Pulse Oximetry 95 98 Oxygen Delivery Method Room Air Room Air BMI result Body Mass Index 26.4 Appearance: Alert. Oriented X3. No acute distress. Eyes: Pupils equal, round and reactive to light. ENT: Pharynx normal. tongue fasciculations present Neck: Normal inspection. Neck supple. CVS: tachycardic heart rate and rhythm. Pulses normal. Respiratory: No respiratory distress. Breath sounds normal. Abdomen: Soft and nontender. Skin: Skin warm and dry. Normal skin color. Normal skin turgor. Extremities: No lower extremity edema. No calf ttp Neuro: Oriented X 3. No motor deficit. No sensory deficit. bilateral tremors present mild Course Course Course Narrative: This is an RME: Additional HPI, ROS, PE not included below will be deferred to primary provider. Patient is a 57-year-old male presents emergency department requesting assistance with detox from alcohol. He denies additional recreational drug usage. He states he is typically drinking to sleeps of alcohol daily, states he last drank sometimes this morning. He says he has a history of withdrawal seizures. Current CIWA 10. Plan: Labs, toxicology, charge entry made aware of patient, pending next bad availablity Medical Decision Making Medical Decision Making [facility] Narrative: 57 yo male with PMH of ETOH withdrawal and seizure several years ago here in withdrawal but wants to go to detox in the AM at this time will start on PO K and thiamine/magnesium and IV fluids as well as phenobarb protocol. He may need just a dose and if stable can be discharged in the AM he is very hopeful to go to detox in the AM though his story is very inconsistent and his CIWA of 12 and hx of seizures is concerning. Differential Diagnosis Differential Diagnoses: The differential diagnosis associated with the presentation includes lyte abnormality, withdrawal from ETOH Admission/Observation Consideration of admission/observation: Escalation of care including admission/observation considered doing better after phenobarb but still shaky and tachycardic will admit for further management Consult Healthcare Provider Management of the patient was discussed with: Hospitalist (will admit) Lab Data [facility] Lab Attestation statement: I reviewed the patient's lab results. 07/08/23 20:23 07/08/23 20:23 Labs: Lab Results 07/08/23 07/08/23 Range/Units 20:23 22:36 WBC 9.2 (4.8-10.8) X10*3/uL RBC 4.75 (4.60-5.80) X10*6/uL Hgb 15.3 (14.0-18.0) g/dl Hct 41.4 L (42.0-52.0) % MCV 87.2 (80.0-98.0) fL MCH 32.2 (27.0-33.0) pg MCHC 37.0 H (31.0-36.0) g/dl RDW 12.4 (11.0-16.0) % Plt Count 196 (160-400) X10*3/uL MPV 9.0 L (9.4-12.4) fL Absolute Nucleated RBC 0.000 (0.0-0.012) X10*3/uL Nucleated RBC % (auto) 0.0 (0.0-0.2) /100WBC PT 10.8 L (11.1-13.3) SEC INR 0.9 (0.9-1.1) Sodium 137 (135-145) mmol/L Potassium 3.1 L (3.3-5.1) mmol/L Chloride 100 (96-108) mmol/L Carbon Dioxide 21 L (22-29) mmol/L Anion Gap 19 (12-20) BUN 8 L (9-16) mg/dL Creatinine 0.99 (0.5-1.4) mg/dL Estim Creat Clear Calc 94.1 Estimated GFR > 60 Random Glucose 289 H (60-115) mg/dL Calcium 8.1 L (8.4-10.2) mg/dL Magnesium 2.1 (1.6-2.6) mg/dL Total Bilirubin 0.9 (0.0-1.0) mg/dL Direct Bilirubin 0.4 (0.0-0.5) mg/dL AST 40 H (5-37) U/L ALT 26 (0-40) U/L Alkaline Phosphatase 72 (39-117) U/L Total Protein 6.8 (6.5-8.0) g/dL Albumin 3.9 (3.5-5.0) g/dL Urine Opiates Screen Not Detected (Not Detect) Urine Fentanyl Screen Not Detected (Not Detect) Ur Barbiturates Screen Not Detected (Not Detect) Ur Phencyclidine Scrn Not Detected (Not Detect) Ur Amphetamines Screen Not Detected (Not Detect) U Benzodiazepines Scrn Not Detected (Not Detect) Urine Cocaine Screen Not Detected (Not Detect) U Marijuana (THC) Screen Not Detected (Not Detect) Ethyl Alcohol 166 mg/dL Independent Interpretation I performed an independent interpretation of an: EKG Interpretation: Rate: 94 Rhythm: NSR [place]: normal Normal P waves. Normal GABRIELLA. Normal QRS complex. ST T wave : normal no DAYANNA, flat t wave in aVL qTC: 465 prior studies: The study has been interpreted contemporaneously by me. . External Record Review External record reviewed: Inpatient record Medications Administered Generic Name Dose Route Start Last Admin Trade Name Freq PRN Reason Stop Dose Admin Magnesium Sulfate 2 gm in 50 mls @ 25 mls/hr 07/08/23 22:07 07/08/23 22:45 Magnesium Sulfate/H2o IV 07/09/23 00:06 25 mls/hr ONCE ONE Administration Discontinued Medications Generic Name Dose Route Start Last Admin Trade Name Pamela PRN Reason Stop Dose Admin Thiamine HCl 200 mg/ Sodium 102 mls @ 204 mls/hr 07/08/23 22:07 07/08/23 22:47 Chloride IV 07/08/23 22:36 204 mls/hr ONCE ONE Administration Sodium Chloride 1,000 mls @ 999 mls/hr 07/08/23 22:15 07/08/23 22:45 Ns IV 07/08/23 23:15 999 mls/hr .Q1H1M ANNALISA Administration Phenobarbital Sodium 383.5 mg 07/08/23 23:00 07/08/23 22:54 Phenobarbital Sodium 130 Mg/Ml Im Once IM 07/08/23 23:01 383.5 mg ONCE ONE Administration Protocol Potassium Chloride 40 meq 07/08/23 22:07 07/08/23 22:45 Potassium Chloride Packet 20 Meq Packet PO 07/08/23 22:08 40 meq ONCE ONE Administration Critical Care Time Critical Care Time Critical Care Time: Yes Total Critical Care Time: 40 Attestation: K repletion, IV magnesium, ETOH withdrawal protocol - phenobarbital IM I attest to this time spent taking care of the patient Discharge Plan Discharge Clinical Impression: Acute hypokalemia Alcohol withdrawal syndrome Qualifiers: Complication of substance-induced condition: uncomplicated Qualified Code(s): F10.930 - Alcohol use, unspecified with withdrawal, uncomplicated Patient Disposition: Admitted As Inpatient
[2023-07-08 20:43] LABS: Hematocrit 41.4 % (42.0-52.0); Hemoglobin 15.3 g/dl (14.0-18.0); Mean Corpuscular Hemoglobin 32.2 pg (27.0-33.0); Mean Corpuscular Volume 87.2 fL (80.0-98.0); Platelet Count 196 X10*3/uL (160-400); Red Blood Count 4.75 X10*6/uL (4.60-5.80); Red Cell Distribution Width 12.4 % (11.0-16.0); White Blood Count 9.2 X10*3/uL (4.8-10.8)
[2023-07-08 20:52] LABS: Anion Gap 19 (12-20); Blood Urea Nitrogen 8 mg/dL (9-16); Calcium 8.1 mg/dL (8.4-10.2); Carbon Dioxide 21 mmol/L (22-29); Chloride 100 mmol/L (96-108); Creatinine Clr Calc Pharmacy 94.1; Estimated Glomerular Filt Rate > 60; Ethanol 166 mg/dL; Glucose Random 289 mg/dL (60-115); Potassium 3.1 mmol/L (3.3-5.1); Sodium 137 mmol/L (135-145)
[2023-07-08 22:37] LABS: Alanine Aminotransferase 26 U/L (0-40); Albumin Level 3.9 g/dL (3.5-5.0); Alkaline Phosphatase 72 U/L (39-117); Aspartate Amino Transferase 40 U/L (5-37); Bilirubin Direct 0.4 mg/dL (0.0-0.5); Bilirubin Total 0.9 mg/dL (0.0-1.0); Magnesium 2.1 mg/dL (1.6-2.6); Total Protein 6.8 g/dL (6.5-8.0)
[2023-07-08 22:43] VITALS: BP 132/92; PULSE 99; RESP 20; O2SAT 98
[2023-07-08] MEDS: 0.9 % Sodium Chloride 1,000 ML 999 ML IV (22:45)
[2023-07-08] MEDS: Potassium Chloride Packet 20 MEQ PACKET 40 MEQ PO (22:45)
[2023-07-08] MEDS: Magnesium Sulfate/H2O 2 GM/50 ML PIGGYBACK IV (22:45)
[2023-07-08] MEDS: Thiamine HCL 200 MG in 0.9 % Sodium Chloride 100 ML 204 MG IV (22:47)
--- NOTE | 2023-07-08 22:49 | ECG_ITS ---
Test Reason : DETOXIFICATION Blood Pressure : / mmHG Vent. Rate : 094 BPM Atrial Rate : 094 BPM P-R Int : 128 ms QRS Dur : 076 ms QT Int : 372 ms P-R-T Axes : 052 008 035 degrees QTc Int : 465 ms Normal sinus rhythm Normal ECG When compared with ECG of 27-OCT-2022 04:08, Nonspecific T wave abnormality now evident in Inferior leads Referred By: Shelley Lane Electronically Signed By:DOMI COOPER MD
[2023-07-08 22:50] LABS: Amphetamine Screen Urine Not Detected (Not Detect); Barbiturates, Urine Not Detected (Not Detect); Benzodiazepines Screen Urine Not Detected (Not Detect); Cannabinoid Screen Urine Not Detected (Not Detect); Cocaine Screen Urine Not Detected (Not Detect); Fentanyl, urine Not Detected (Not Detect); INTERNATIONAL NORM RATIO 0.9 (0.9-1.1); Opiate Screen Urine Not Detected (Not Detect); Phencyclidine Screen Urine Not Detected (Not Detect); Prothrombin Time 10.8 SEC (11.1-13.3)
[2023-07-08] MEDS: PHENobarbitaL sodium 130 MG/ML IM ONCE 383.5 MG IM (22:54)
[2023-07-09] VITALS (7 sets, daily range): BP systolic 134–172; BP diastolic 85–107; PULSE 79–96; RESP 12–20; TEMP 36.1–36.4; O2SAT 97–98
[2023-07-09] MEDS: Potassium Chloride/H20 10 MEQ/100 ML PIGGYBACK 100 MEQ IV ×2 (01:02→02:07)
[2023-07-09] MEDS: 0.9 % Sodium Chloride 1,000 ML 100 ML IVCONT ×3 (02:08→21:24)
[2023-07-09] MEDS: PHENobarbitaL sodium 130 MG/ML VIAL IM Q3Hx2 287.3 MG IM ×2 (02:13→06:01)
[2023-07-09] MEDS: QUEtiapine Fumarate 25 MG TABLET PO ×2 (02:32→21:25)
--- NOTE | 2023-07-09 03:42 | PM.IMHP ---
History of Present Illness Date of Service: 07/09/23 Attending physician on admission: Linda Quintero Chief Complaint: Alcohol withdrawal symptoms Thanh Amanda is a 57 years old man with past medical history significant for alcohol abuse, IVDU on Suboxone, hypertension and depression presents to the emergency department complaining of shakiness, anxiety, nausea and vomiting. He also complained of generalized abdominal discomfort. He denies diarrhea, fevers chills. He does complain of headache but denies any acute visual disturbances. He denies any cardiopulmonary or genitourinary symptoms. He drinks about 20 nips of vodka daily. He stated that the last drink was yesterday. In the ED, he was found to have sinus tachycardia that his blood pressure has been elevated. There is no fever and oxygen saturation is normal on room air. Blood workup showed no leukocytosis. Hemoglobin is normal. Potassium level is 3.1 and bicarb is slightly low at 21. Blood glucose is 289. Urine drug screen is negative. Alcohol level is 166. ECG is normal. ED tx: Therapy with phenobarbital was initiated. Potassium 40 mEq p.o. x1, magnesium 2 g IV x1 thiamine 100 mg IV, NS 1 L bolus Review of Systems Review of Systems: All 12 systems were reviewed and normal except as noted in HPI. [facility] Medical History Hx of intravenous drug use in remission Depression Social History Alcohol intake: current Alcohol intake frequency: 3 or more drinks per day Alcohol type: hard liquor Substance Use Type: Marijuana Advance Directives: No Advance Directives Information Provided: No Meds Allergies Allergy/AdvReac Type Severity Reaction Status Date / Time sulfamethoxazole Allergy Nausea and Verified 10/25/22 07:29 [From Bactrim] Vomiting trimethoprim [From Bactrim] Allergy Nausea and Verified 10/25/22 07:29 Vomiting Active Medications: Current Medications Acetaminophen (Acetaminophen 325 Mg Tablet) 975 mg PO Q6H PRN PRN Reason: headache Folic Acid (Folic Acid 1 Mg Tablet) 1 mg PO DAILY ANNALISA Stop: 07/12/23 08:59 Heparin Sodium (Porcine) (Heparin Sodium,Porcine 5,000 Unit/Ml Vial) 5,000 unit SUBCUT Q12H ANNALISA Sodium Chloride (Ns) 1,000 mls @ 100 mls/hr IVCONT .Q10H [facility] Last Admin: 07/09/23 02:08 Dose: 100 mls/hr Multivitamins/Vitamin C (Multivitamin Tablet) 1 tab PO DAILY [facility] Stop: 07/12/23 08:59 Pantoprazole Sodium (Pantoprazole Sodium 40 Mg/10 Ml Vial) 40 mg IVPUSH DAILY@0630 [facility] Pharmacy Consult (Consult Rx Etoh Phenob Im/Po) 1 each MISCELLANE ONCE PRN; Protocol PRN Reason: Consult order Phenobarbital (Phenobarbital 30 Mg Tablet) 60 mg PO BID [facility]; Protocol Stop: 07/10/23 21:01 Phenobarbital (Phenobarbital 30 Mg Tablet) 30 mg PO BID [facility]; Protocol Stop: 07/12/23 21:01 Phenobarbital (Phenobarbital 30 Mg Tablet) 30 mg PO DAILY [facility]; Protocol Stop: 07/14/23 09:01 Phenobarbital Sodium (Phenobarbital Sodium 130 Mg/Ml Vial Im Q3hx2) 287.3 mg IM Q3H [facility]; Protocol Stop: 07/09/23 05:01 Last Admin: 07/09/23 02:13 Dose: 287.3 mg Quetiapine Fumarate (Quetiapine Fumarate 25 Mg Tablet) 25 mg PO BEDTIME PRN PRN Reason: insomnia Last Admin: 07/09/23 02:32 Dose: 25 mg Sodium Chloride (0.9 % Sodium Chloride Flush 3 Ml Syringe) [facility] Thiamine HCl (Thiamine Hcl 100 Mg Tablet) 100 mg PO DAILY [facility] Stop: 07/12/23 08:59 Home Medications Medication Instructions Recorded Confirmed Last Taken Type buprenorphine 2 mg-naloxone 0.5 mg 2 mg sublingual DAILY 10/23/22 10/27/22 Unknown History sublingual film bupropion HCl 300 mg 24 hr tablet, 300 mg PO QAM 10/23/22 10/27/22 Unknown History extended release nicotine 14 mg/24 hr daily 1 patch topical DAILY 10/23/22 10/27/22 Unknown History transdermal patch quetiapine 200 mg tablet 200 mg PO DAILY 10/23/22 10/27/22 Unknown History Physical Exam Vital Signs and Narrative: Vital Signs: Last Vital Signs Temp 98.2 F 07/08/23 19:43 Pulse 96 07/09/23 02:20 Resp 20 07/09/23 02:20 BP 141/85 H 07/09/23 02:20 Pulse Ox 98 07/09/23 02:20 O2 Del Method Room Air 07/09/23 02:20 BMI result Body Mass Index 26.4 Constitutional - Awake and Alert, No apparent distress. Acutely ill. HEENT - Atraumatic. Normocephalic. Cardiovascular - Tachycardia. Regular rhythm. Respiratory - Normal lung expansion, Normal respiratory effort, No respiratory distress, CTA bilaterally Gastrointestinal - NT / ND; +BS; No rebound or guarding Extremities - No calf tenderness bilaterally, no swelling Musculoskeletal - Normal inspection, normal ROM Skin - Warm/Dry. No jaundice. Neurological - Alert & oriented x3. No nystagmus. No focal weakness. Psychological - Anxious affect. No hallucination. Results Labs 07/08/23 20:23 07/08/23 20:23 Labs: Laboratory Results - last 24 hr 07/08/23 07/08/23 20:23 22:36 MCV 87.2 MCH 32.2 MCHC 37.0 H RDW 12.4 Plt Count 196 MPV 9.0 L Absolute Nucleated RBC 0.000 Nucleated RBC % (auto) 0.0 PT 10.8 L INR 0.9 Anion Gap 19 Estim Creat Clear Calc 94.1 Estimated GFR > 60 Random Glucose 289 H Calcium 8.1 L Magnesium 2.1 Total Bilirubin 0.9 Direct Bilirubin 0.4 AST 40 H ALT 26 Alkaline Phosphatase 72 Total Protein 6.8 Albumin 3.9 Urine Opiates Screen Not Detected Urine Fentanyl Screen Not Detected Ur Barbiturates Screen Not Detected Ur Phencyclidine Scrn Not Detected Ur Amphetamines Screen Not Detected U Benzodiazepines Scrn Not Detected Urine Cocaine Screen Not Detected U Marijuana (THC) Screen Not Detected Ethyl Alcohol 166 Assessment and Plan (1) Alcohol withdrawal syndrome: Qualifiers: Complication of substance-induced condition: uncomplicated Qualified Code(s): F10.930 - Alcohol use, unspecified with withdrawal, uncomplicated Status: Acute (2) Acute hypokalemia: Status: Acute Plan Thanh Amanda is a 57 years old man with past medical history significant for alcohol abuse, IVDU on Suboxone and depression Alcohol withdrawal syndrome. Admit to hospitalist service. Telemetry. Continue CIWA protocol: Thiamine, folic acid and multivitamins. Start IV fluids. Continue therapy with phenobarbital. Social work consult. Hypokalemia likely secondary to hydrochlorothiazide. Replete as needed. Continue to monitor potassium level. Hyperglycemia. Random blood glucose over 200. No history of diabetes mellitus. We will continue to monitor blood glucose before meals -if versus elevated will consider insulin sliding scale. Check hemoglobin A1c. History of IVDU. Continue Suboxone. Essential hypertension. Hydrochlorothiazide is on hold due to hypokalemia. Start amlodipine. Depression. Continue Wellbutrin. DVT prophylaxis: Heparin subQ. Code status: Full. Patient will require hospitalization for at least midnight for alcohol withdrawal syndrome phenobarbital, CIWA protocol and social work evaluation. Quality Stroke Does the patient have a stroke diagnosis?: No VTE Prior VTE?: No VTE Risk Level:: Medical - moderate - high VTE Device Contraindication: Treatment Not Indicated VTE Drug Contraindication: N/A - Med Ordered
[2023-07-09] MEDS: Pantoprazole Sodium 40 MG/10 ML VIAL IVPUSH (06:01)
[2023-07-09 06:10] LABS: Alanine Aminotransferase 26 U/L (0-40); Albumin Level 3.6 g/dL (3.5-5.0); Alkaline Phosphatase 67 U/L (39-117); Anion Gap 10 (12-20); Aspartate Amino Transferase 45 U/L (5-37); Bilirubin Total 1.5 mg/dL (0.0-1.0); Blood Urea Nitrogen 6 mg/dL (9-16); Calcium 7.8 mg/dL (8.4-10.2); Carbon Dioxide 23 mmol/L (22-29); Chloride 109 mmol/L (96-108); Creatinine Clr Calc Pharmacy 116.5; Estimated Glomerular Filt Rate > 60; Glucose Random 112 mg/dL (60-115); Magnesium 2.2 mg/dL (1.6-2.6); Potassium 3.8 mmol/L (3.3-5.1); Sodium 138 mmol/L (135-145); Total Protein 6.2 g/dL (6.5-8.0)
[2023-07-09 07:13] LABS: Glucose, Whole Blood 130 mg/dL (60-115)
[2023-07-09 07:28] LABS: Estimated Average Glucose 105 mg/dL; Hemoglobin A1c % 5.3 % (<6.0)
[2023-07-09] MEDS: Buprenorphine/Naloxone 2/0.5mg FILM 1 FILM SUBLINGUAL (07:30)
[2023-07-09] MEDS: amLODIPine Besylate 5 MG TABLET PO (07:31)
[2023-07-09] MEDS: PHENobarbitaL 30 MG TABLET 60 MG PO ×2 (07:31→21:24)
[2023-07-09] MEDS: Multivitamin TABLET 1 TAB PO (07:31)
[2023-07-09] MEDS: Heparin Sodium,Porcine 5,000 UNIT/ML VIAL 5000 UNIT SUBCUT ×2 (07:32→21:24)
[2023-07-09] MEDS: buPROPion HCl XL 300 MG TAB.ER.24H PO (07:32)
[2023-07-09] MEDS: Thiamine HCL 100 MG TABLET PO (07:32)
[2023-07-09] MEDS: 0.9 % Sodium Chloride Flush 3 ML SYRINGE IVFLUSH ×2 (07:32→21:24)
[2023-07-09] MEDS: Folic Acid 1 MG TABLET PO (07:32)
--- NOTE | 2023-07-09 08:46 | PHA.MEDREC ---
Pharmacy Consult ? Medication Reconciliation Pharmacy has completed the medication reconciliation. Spoke to patient to confirm meds.
--- NOTE | 2023-07-09 09:06 | PM.EVENT ---
Event Note Date of Service: 07/09/23 Event Note: LAying comfortable in his bed Denies any pain, nausea or vomiting Continue IVF Continue CIWA Phenobarbital protocol follow BMP Time Spent With Patient Time: Total time managing care of this patient today ____ minutes.
[2023-07-09] MEDS: Nicotine 21 MG PATCH.TD24 TRANSDERMA (09:25)
--- NOTE | 2023-07-09 09:27 | PC.NURSE ---
patient a&ox3, vss, cardiac monitor technician intact nsr with pvcs, ivf running per order, pt medicated per order, ciwa currently 0, call hogan within reach, will continue to monitor
--- NOTE | 2023-07-09 09:29 | PC.NURSE ---
pt unable to bring terbinafine in from home, pharmacy is now aware
[2023-07-09 13:23] LABS: Glucose, Whole Blood 134 mg/dL (60-115)
--- NOTE | 2023-07-09 13:37 | PC.NURSE ---
patient sleeping, woke to verbal stimulus, denies pain/discomfort, urinal emptied- output documented in meditech, pt poc obtained and documented, engine monitor intact- nsr on monitor, pt given lunch tray will continue to monitor
[2023-07-09 17:06] LABS: Glucose, Whole Blood 134 mg/dL (60-115)
[2023-07-09 21:19] LABS: Glucose, Whole Blood 135 mg/dL (60-115)
[2023-07-10 03:19] VITALS: BP 132/94; PULSE 83; RESP 18; TEMP 36.3; O2SAT 98
[2023-07-10] MEDS: Pantoprazole Sodium 40 MG/10 ML VIAL IVPUSH (06:04)
[2023-07-10 07:19] LABS: Hematocrit 40.6 % (42.0-52.0); Hemoglobin 14.9 g/dl (14.0-18.0); Mean Corpuscular HGB Conc 36.7 g/dl (31.0-36.0); Mean Corpuscular Volume 87.1 fL (80.0-98.0); Mean Platelet Volume 9.6 fL (9.4-12.4); Platelet Count 149 X10*3/uL (160-400); Red Blood Count 4.66 X10*6/uL (4.60-5.80); Red Cell Distribution Width 11.9 % (11.0-16.0); White Blood Count 6.6 X10*3/uL (4.8-10.8)
[2023-07-10 07:24] VITALS: BP 142/95; PULSE 72; RESP 16; TEMP 36.5; O2SAT 98
[2023-07-10 07:44] LABS: Glucose, Whole Blood 126 mg/dL (60-115)
[2023-07-10 08:08] LABS: Anion Gap 10 (12-20); Blood Urea Nitrogen 5 mg/dL (9-16); Calcium 8.1 mg/dL (8.4-10.2); Carbon Dioxide 23 mmol/L (22-29); Chloride 105 mmol/L (96-108); Creatinine Clr Calc Pharmacy 122.6; Estimated Glomerular Filt Rate > 60; Glucose Random 116 mg/dL (60-115); Potassium 3.1 mmol/L (3.3-5.1); Sodium 135 mmol/L (135-145)
[2023-07-10] MEDS: buPROPion HCl XL 300 MG TAB.ER.24H PO (09:07)
[2023-07-10] MEDS: Heparin Sodium,Porcine 5,000 UNIT/ML VIAL 5000 UNIT SUBCUT ×2 (09:07→21:20)
[2023-07-10] MEDS: Multivitamin TABLET 1 TAB PO (09:08)
[2023-07-10] MEDS: amLODIPine Besylate 5 MG TABLET PO (09:08)
[2023-07-10] MEDS: Atorvastatin Calcium 20 MG TABLET PO (09:08)
[2023-07-10] MEDS: PHENobarbitaL 30 MG TABLET 60 MG PO ×2 (09:08→21:19)
[2023-07-10] MEDS: Thiamine HCL 100 MG TABLET PO (09:08)
[2023-07-10] MEDS: hydroCHLOROthiazide 25 MG TABLET PO (09:08)
[2023-07-10] MEDS: Folic Acid 1 MG TABLET PO (09:08)
[2023-07-10] MEDS: Buprenorphine/Naloxone 2/0.5mg FILM 1 FILM SUBLINGUAL (09:09)
[2023-07-10] MEDS: Nicotine 21 MG PATCH.TD24 TRANSDERMA (09:16)
[2023-07-10] MEDS: 0.9 % Sodium Chloride 1,000 ML 100 ML IVCONT ×2 (09:17→18:38)
--- NOTE | 2023-07-10 11:23 | HO.PM.IMPN ---
Subjective Subjective Date of Service: 07/10/23 Interval History: Seen and evaluated this morning Feels better, less agitated and more interactive feels tired, cloudy brain reports anxiety and restlessness Review of Systems Review of Systems: Yes all other systems are reviewed and are negative Physical Exam Vital Signs: Vital Signs: Last Vital Signs Temp 97.7 F 07/10/23 07:24 Pulse 72 07/10/23 07:24 Resp 16 07/10/23 07:24 BP 142/95 H 07/10/23 07:24 Pulse Ox 98 07/10/23 07:24 O2 Del Method Room Air 07/10/23 07:24 BMI result Body Mass Index 26.4 Const: Other: Constitutional : Awake, interactive, anxious Neck : Normal inspection, Supple Cardiovascular : RRR, no JVP, no lower extremity edema Respiratory : good bilateral air entry, no crackles, wheezes or rhonchi Gastrointestinal: soft, lax, Normal bowel sounds, Non tender Skin : Warm, Dry Neurological : Alert & oriented x3, No focal deficit, mild tremors, Objective Data Active Medications Acetaminophen (Acetaminophen 325 Mg Tablet) 975 mg PO Q6H PRN PRN Reason: headache Amlodipine Besylate (Amlodipine Besylate 5 Mg Tablet) 5 mg PO DAILY [facility]; Protocol Last Admin: 07/10/23 09:08 Dose: 5 mg Documented By: JAELYN Atorvastatin Calcium (Atorvastatin Calcium 20 Mg Tablet) 20 mg PO DAILY [facility] Last Admin: 07/10/23 09:08 Dose: 20 mg Documented By: JAELYN Buprenorphine/Naloxone (Buprenorphine/Naloxone 2/0.5mg Film) 1 film SUBLINGUAL DAILY [facility] Last Admin: 07/10/23 09:09 Dose: 1 film Documented By: JAELYN Bupropion HCl (Bupropion Hcl Xl 300 Mg Tab.Er.24h) 300 mg PO DAILY [facility] Last Admin: 07/10/23 09:07 Dose: 300 mg Documented By: JAELYN Dextrose (Dextrose 50 % 25 Gm/50 Ml Syringe) 25 gm IVPUSH Q15M PRN; Protocol PRN Reason: per Hypoglycemia Standing Ord. Dorzolamide/Timolol (Dorzolamide/Timolo 2.23%/0.68% 10 Ml Drbtl) 1 drop EYE-BOTH BID [facility] Last Admin: 07/10/23 09:19 Dose: Not Given Documented By: JAELYN Non-Admin Reason: Med Not Available Folic Acid (Folic Acid 1 Mg Tablet) 1 mg PO DAILY [facility] Stop: 07/12/23 08:59 Last Admin: 07/10/23 09:08 Dose: 1 mg Documented By: JAELYN Glucose (Glucose Gel 15 Gm Gel..Gram.) 15 gm PO Q15M PRN; Protocol PRN Reason: per Hypoglycemia Standing Ord. Heparin Sodium (Porcine) (Heparin Sodium,Porcine 5,000 Unit/Ml Vial) 5,000 unit SUBCUT Q12H [facility] Last Admin: 07/10/23 09:07 Dose: 5,000 unit Documented By: JAELYN Hydrochlorothiazide (Hydrochlorothiazide 25 Mg Tablet) 25 mg PO DAILY [facility]; Protocol Last Admin: 07/10/23 09:08 Dose: 25 mg Documented By: JAELYN Hydroxyzine HCl (Hydroxyzine Hcl 50 Mg Tablet) 50 mg PO Q6H PRN PRN Reason: anxiety/restlessness Sodium Chloride (Ns) 1,000 mls @ 100 mls/hr IVCONT .Q10H [facility] Last Admin: 07/10/23 09:17 Dose: 100 mls/hr Documented By: JAELYN Multivitamins/Vitamin C (Multivitamin Tablet) 1 tab PO DAILY [facility] Stop: 07/12/23 08:59 Last Admin: 07/10/23 09:08 Dose: 1 tab Documented By: JAELYN Nicotine (Nicotine 21 Mg Patch.Td24) 21 mg TRANSDERMA DAILY [facility] Last Admin: 07/10/23 09:16 Dose: 21 mg Documented By: JAELYN Pantoprazole Sodium (Pantoprazole Sodium 40 Mg/10 Ml Vial) 40 mg IVPUSH DAILY@0630 [facility] Last Admin: 07/10/23 06:04 Dose: 40 mg Documented By: WHITNEY Pharmacy Consult (Consult Rx Etoh Phenob Im/Po) 1 each MISCELLANE ONCE PRN; Protocol PRN Reason: Consult order Phenobarbital (Phenobarbital 30 Mg Tablet) 60 mg PO BID [facility]; Protocol Stop: 07/10/23 21:01 Last Admin: 07/10/23 09:08 Dose: 60 mg Documented By: JAELYN Phenobarbital (Phenobarbital 30 Mg Tablet) 30 mg PO BID [facility]; Protocol Stop: 07/12/23 21:01 Phenobarbital (Phenobarbital 30 Mg Tablet) 30 mg PO DAILY [facility]; Protocol Stop: 07/14/23 09:01 Quetiapine Fumarate (Quetiapine Fumarate 25 Mg Tablet) 25 mg PO BEDTIME PRN PRN Reason: insomnia Sodium Chloride (0.9 % Sodium Chloride Flush 3 Ml Syringe) 3 ml IVFLUSH QSHIFT [facility] Last Admin: 07/10/23 09:17 Dose: Not Given Documented By: JAELYN Non-Admin Reason: IV Running Thiamine HCl (Thiamine Hcl 100 Mg Tablet) 100 mg PO DAILY [facility] Stop: 07/12/23 08:59 Last Admin: 07/10/23 09:08 Dose: 100 mg Documented By: JAELYN Labs 07/10/23 06:21 07/10/23 06:21 Labs: Laboratory Results - last 24 hr 07/09/23 07/09/23 07/09/23 13:19 16:56 21:14 MCV MCH MCHC RDW Plt Count MPV Absolute Nucleated RBC Nucleated RBC % (auto) Anion Gap Estim Creat Clear Calc Estimated GFR POC Glucose 134 H 134 H 135 H Random Glucose Calcium 07/10/23 07/10/23 06:21 07:39 MCV 87.1 MCH 32.0 MCHC 36.7 H RDW 11.9 Plt Count 149 L MPV 9.6 Absolute Nucleated RBC 0.000 Nucleated RBC % (auto) 0.0 Anion Gap 10 L Estim Creat Clear Calc 122.6 Estimated GFR > 60 POC Glucose 126 H Random Glucose 116 H Calcium 8.1 L Assessment and Plan (1) Acute hypokalemia: Status: Acute (2) Alcohol withdrawal syndrome: Status: Acute Plan Thanh Amanda is a 57 years old man with past medical history significant for alcohol abuse, IVDU on Suboxone and depression # Alcohol abuse with withdrawal patient still actively withdrawing Continue CIWA protocol Thiamine, folic acid and multivitamins Continue IV fluids Continue therapy with phenobarbital Addiction team consult. # Acute Hypokalemia Replete as needed. Continue to monitor potassium level. # Hyperglycemia Likely related to alcohol consumption No history of diabetes mellitus, HbA1c 5.3 # History of IVDU. Continue Suboxone. # Essential hypertension. Hydrochlorothiazide is on hold due to hypokalemia. Start amlodipine. # Depression. Continue Wellbutrin. DVT prophylaxis: Heparin subQ. Code status: Full. Patient will require hospitalization overnight for alcohol withdrawal syndrome phenobarbital, CIWA protocol and addiction team evaluation. Quality Stroke Does the patient have a stroke diagnosis?: No VTE Prior VTE?: No VTE Risk Level:: Medical - moderate - high VTE Device Contraindication: Treatment Not Indicated VTE Drug Contraindication: N/A - Med Ordered
--- NOTE | 2023-07-10 11:32 | MHC.CM.PN ---
Pt lives at [facility], a home for men who are experiencing addiction. He said he can return there upon DC. They offer meals and support. HCP discussed, pt declined to complete form. PCP confirmed: Sera Ross. Pt has used [facility] in the past, following surgery. He will need assistance with transportation home upon DC. CM to follow and assist with DC planning.
[2023-07-10 11:40] LABS: Glucose, Whole Blood 142 mg/dL (60-115)
[2023-07-10 12:00] VITALS: BP 143/79; PULSE 67; RESP 20; TEMP 35.8; O2SAT 95
[2023-07-10] MEDS: Potassium Chloride Packet 20 MEQ PACKET 40 MEQ PO (14:13)
[2023-07-10 16:00] VITALS: BP 129/95; PULSE 85; RESP 18; TEMP 36.1; O2SAT 97
[2023-07-10 17:20] LABS: Glucose, Whole Blood 109 mg/dL (60-115)
[2023-07-10 20:00] VITALS: BP 126/75; PULSE 101; RESP 20; TEMP 36; O2SAT 100
[2023-07-10] MEDS: QUEtiapine Fumarate 25 MG TABLET PO (21:20)
[2023-07-10 21:28] LABS: Glucose, Whole Blood 151 mg/dL (60-115)
[2023-07-10 23:32] VITALS: BP 135/86; PULSE 91; RESP 18; TEMP 37.1; O2SAT 98
[2023-07-11] MEDS: 0.9 % Sodium Chloride Flush 3 ML SYRINGE IVFLUSH ×2 (01:25→09:26)
[2023-07-11 04:00] VITALS: BP 123/88; PULSE 85; RESP 20; TEMP 36.6; O2SAT 98
[2023-07-11] MEDS: Pantoprazole Sodium 40 MG/10 ML VIAL IVPUSH (06:04)
[2023-07-11] MEDS: Acetaminophen 325 MG TABLET 975 MG PO (06:04)
--- NOTE | 2023-07-11 06:53 | PC.NURSE ---
Assumed care of patient at 2345. See shift assessments and EMAR for full details. Handoff report given to oncoming RN 06:45.
[2023-07-11 07:01] LABS: Anion Gap 13 (12-20); Blood Urea Nitrogen 7 mg/dL (9-16); Calcium 8.5 mg/dL (8.4-10.2); Carbon Dioxide 25 mmol/L (22-29); Chloride 100 mmol/L (96-108); Estimated Glomerular Filt Rate > 60; Glucose Random 112 mg/dL (60-115); Potassium 3.2 mmol/L (3.3-5.1); Sodium 135 mmol/L (135-145)
[2023-07-11 07:18] LABS: Glucose, Whole Blood 131 mg/dL (60-115)
[2023-07-11 08:00] VITALS: BP 131/84; PULSE 90; RESP 18; TEMP 37; O2SAT 98
[2023-07-11] MEDS: Potassium Chloride Packet 20 MEQ PACKET 40 MEQ PO (09:09)
[2023-07-11] MEDS: hydroCHLOROthiazide 25 MG TABLET PO (09:13)
[2023-07-11] MEDS: Multivitamin TABLET 1 TAB PO (09:13)
[2023-07-11] MEDS: Folic Acid 1 MG TABLET PO (09:13)
[2023-07-11] MEDS: Nicotine 21 MG PATCH.TD24 TRANSDERMA (09:13)
[2023-07-11] MEDS: buPROPion HCl XL 300 MG TAB.ER.24H PO (09:13)
[2023-07-11] MEDS: PHENobarbitaL 30 MG TABLET PO ×2 (09:13→20:36)
[2023-07-11] MEDS: Buprenorphine/Naloxone 2/0.5mg FILM 1 FILM SUBLINGUAL (09:13)
[2023-07-11] MEDS: amLODIPine Besylate 5 MG TABLET PO (09:13)
[2023-07-11] MEDS: Atorvastatin Calcium 20 MG TABLET PO (09:13)
[2023-07-11] MEDS: Heparin Sodium,Porcine 5,000 UNIT/ML VIAL 5000 UNIT SUBCUT ×2 (09:14→20:37)
[2023-07-11] MEDS: Thiamine HCL 100 MG TABLET PO (09:25)
[2023-07-11] MEDS: Ibuprofen 400 MG TABLET PO (10:12)
[2023-07-11] MEDS: Dorzolamide/Timolo 2.23%/0.68% 10 ML DRBTL 1 DROP EYE-BOTH ×2 (10:12→20:40)
[2023-07-11] MEDS: Betamethasone Dip Aug 0.05% Cr 15 GM TUBE 1 APPL TOPICAL ×2 (10:12→20:40)
[2023-07-11] MEDS: PHENobarbitaL sodium 130 MG/ML VIAL IM (10:13)
[2023-07-11] MEDS: Lactated Ringers 1,000 ML 125 ML IVCONT ×2 (10:22→18:32)
--- NOTE | 2023-07-11 10:31 | P.PNIM_ITS ---
Subjective Subjective Date of Service: 07/11/23 Interval History: Seen and evaluated this morning Scoring in CIWA, feels tired and anxious feels tired, cloudy brain reports anxiety and restlessness Review of Systems Review of Systems: Yes all other systems are reviewed and are negative Physical Exam 2 Vital Signs: Vital Signs: Last Vital Signs Temp 98.6 F 07/11/23 08:00 Pulse 90 07/11/23 08:00 Resp 18 07/11/23 08:00 BP 131/84 07/11/23 08:00 Pulse Ox 98 07/11/23 08:00 O2 Del Method Room Air 07/11/23 08:00 BMI result Body Mass Index 26.4 Const: Other: Constitutional : Awake, interactive, anxious Neck : Normal inspection, Supple Cardiovascular : RRR, no JVP, no lower extremity edema Respiratory : good bilateral air entry, no crackles, wheezes or rhonchi Gastrointestinal: soft, lax, Normal bowel sounds, Non tender Skin : Warm, Dry Neurological : Alert & oriented x3, No focal deficit, mild tremors Objective Data Active Medications Acetaminophen (Acetaminophen 325 Mg Tablet) 975 mg PO Q6H PRN PRN Reason: headache Last Admin: 07/11/23 06:04 Dose: 975 mg Documented By: CHAPIN Amlodipine Besylate (Amlodipine Besylate 5 Mg Tablet) 5 mg PO DAILY [facility]; Protocol Last Admin: 07/11/23 09:13 Dose: 5 mg Documented By: KELLY Atorvastatin Calcium (Atorvastatin Calcium 20 Mg Tablet) 20 mg PO DAILY [facility] Last Admin: 07/11/23 09:13 Dose: 20 mg Documented By: KELLY Betamethasone Dipropion Augmented (Betamethasone Dip Aug 0.05% Cr 15 Gm Tube) 1 appl TOPICAL BID [facility]; Protocol Last Admin: 07/11/23 10:12 Dose: 1 appl Documented By: KELLY Buprenorphine/Naloxone (Buprenorphine/Naloxone 2/0.5mg Film) 1 film SUBLINGUAL DAILY [facility] Last Admin: 07/11/23 09:13 Dose: 1 film Documented By: KELLY Bupropion HCl (Bupropion Hcl Xl 300 Mg Tab.Er.24h) 300 mg PO DAILY [facility] Last Admin: 07/11/23 09:13 Dose: 300 mg Documented By: KELLY Dextrose (Dextrose 50 % 25 Gm/50 Ml Syringe) 25 gm IVPUSH Q15M PRN; Protocol PRN Reason: per Hypoglycemia Standing Ord. Dorzolamide/Timolol (Dorzolamide/Timolo 2.23%/0.68% 10 Ml Drbtl) 1 drop EYE- BOTH BID [facility] Last Admin: 07/11/23 10:12 Dose: 1 drop Documented By: KELLY Folic Acid (Folic Acid 1 Mg Tablet) 1 mg PO DAILY [facility] Stop: 07/12/23 08:59 Last Admin: 07/11/23 09:13 Dose: 1 mg Documented By: KELLY Glucose (Glucose Gel 15 Gm Gel..Gram.) 15 gm PO Q15M PRN; Protocol PRN Reason: per Hypoglycemia Standing Ord. Heparin Sodium (Porcine) (Heparin Sodium,Porcine 5,000 Unit/Ml Vial) 5,000 unit SUBCUT Q12H [facility] Last Admin: 07/11/23 09:14 Dose: 5,000 unit Documented By: KELLY Hydrochlorothiazide (Hydrochlorothiazide 25 Mg Tablet) 25 mg PO DAILY [facility]; Protocol Last Admin: 07/11/23 09:13 Dose: 25 mg Documented By: KELLY Hydroxyzine HCl (Hydroxyzine Hcl 50 Mg Tablet) 50 mg PO Q6H PRN PRN Reason: anxiety/restlessness Lactated Ringer's (Lr) 1,000 mls @ 125 mls/hr IVCONT .Q8H [facility] Last Admin: 07/11/23 10:22 Dose: 125 mls/hr Documented By: KELLY Ibuprofen (Ibuprofen 400 Mg Tablet) 400 mg PO TIDWM [facility] Last Admin: 07/11/23 10:12 Dose: 400 mg Documented By: KELLY Multivitamins/Vitamin C (Multivitamin Tablet) 1 tab PO DAILY [facility] Stop: 07/12/23 08:59 Last Admin: 07/11/23 09:13 Dose: 1 tab Documented By: KELLY Nicotine (Nicotine 21 Mg Patch.Td24) 21 mg TRANSDERMA DAILY [facility] Last Admin: 07/11/23 09:13 Dose: 21 mg Documented By: KELLY Pantoprazole Sodium (Pantoprazole Sodium 40 Mg/10 Ml Vial) 40 mg IVPUSH DAILY@0630 [facility] Last Admin: 07/11/23 06:04 Dose: 40 mg Documented By: CHAPIN Pharmacy Consult (Consult Rx Etoh Phenob Im/Po) 1 each MISCELLANE ONCE PRN; Protocol PRN Reason: Consult order Phenobarbital (Phenobarbital 30 Mg Tablet) 30 mg PO BID [facility]; Protocol Stop: 07/12/23 21:01 Last Admin: 07/11/23 09:13 Dose: 30 mg Documented By: KELLY Phenobarbital (Phenobarbital 30 Mg Tablet) 30 mg PO DAILY [facility]; Protocol Stop: 07/14/23 09:01 Quetiapine Fumarate (Quetiapine Fumarate 25 Mg Tablet) 25 mg PO BEDTIME PRN PRN Reason: insomnia Last Admin: 07/10/23 21:20 Dose: 25 mg Documented By: JAELYN Sodium Chloride (0.9 % Sodium Chloride Flush 3 Ml Syringe) 3 ml IVFLUSH QSHIFT [facility] Last Admin: 07/11/23 09:26 Dose: 3 ml Documented By: KELLY Thiamine HCl (Thiamine Hcl 100 Mg Tablet) 100 mg PO DAILY [facility] Stop: 07/12/23 08:59 Last Admin: 07/11/23 09:25 Dose: 100 mg Documented By: KELLY Labs 07/10/23 06:21 07/11/23 05:47 Labs: Laboratory Results - last 24 hr 07/10/23 07/10/23 07/10/23 11:32 17:13 21:18 Anion Gap Estim Creat Clear Calc Estimated GFR POC Glucose 142 H 109 151 H Random Glucose Calcium 07/11/23 07/11/23 05:47 07:14 Anion Gap 13 Estim Creat Clear Calc 115.0 Estimated GFR > 60 POC Glucose 131 H Random Glucose 112 Calcium 8.5 Assessment and Plan (1) Acute hypokalemia: Status: Acute (2) Alcohol withdrawal syndrome: Status: Acute Plan Thanh Amanda is a 57 years old man with past medical history significant for alcohol abuse, IVDU on Suboxone and depression # Alcohol abuse with withdrawal patient still actively withdrawing Continue CIWA protocol Give extra dose of Phenobarbital continue phenobarb protocol Thiamine, folic acid and multivitamins restart IV fluids Addiction team consult. # Acute Hypokalemia Replete as needed. Continue to monitor potassium level. # Hyperglycemia Likely related to alcohol consumption No history of diabetes mellitus, HbA1c 5.3 # History of IVDU. Continue Suboxone. # Essential hypertension. Hydrochlorothiazide is on hold due to hypokalemia. Start amlodipine. # Depression. Continue Wellbutrin. DVT prophylaxis: Heparin subQ. Code status: Full. Patient will require hospitalization overnight for alcohol withdrawal syndrome phenobarbital, CIWA protocol and addiction team evaluation. Quality Stroke Does the patient have a stroke diagnosis?: No VTE Prior VTE?: No VTE Risk Level:: Medical - moderate - high VTE Device Contraindication: Treatment Not Indicated VTE Drug Contraindication: N/A - Med Ordered
[2023-07-11 11:39] LABS: Glucose, Whole Blood 109 mg/dL (60-115)
[2023-07-11 12:00] VITALS: BP 130/90; PULSE 71; RESP 20; TEMP 36.1; O2SAT 96
--- NOTE | 2023-07-11 13:53 | MHC.CM.PN ---
EMR reviewed and per MD rounds, pt is not medically cleared for D/C due to ETOH withdrawal. CM will continue to follow.
[2023-07-11 15:46] VITALS: BP 133/88; PULSE 75; RESP 18; TEMP 36.6; O2SAT 99
[2023-07-11 16:03] LABS: Glucose, Whole Blood 112 mg/dL (60-115)
--- NOTE | 2023-07-11 16:08 | MHC.RECOVRN ---
Met with pt in 468 after consult placed to Addiction Medicine for alcohol use. Pt had presented to the ED requesting ATS for alcohol use, endorsed hx withdrawal seizures. Upon evaluation, pt admitted for treatment of alcohol withdrawal. Pt sitting in chair, awake, alert, difficult to engage in conversation. Pt says I don't know to most questions asked. Pt reports currently living at [facility] in [place] and believes he is able to go back. 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 Pt reports alcohol use, 1 sleeve daily x 6 months, this past week pt increased use to 2 sleeves daily. Pt states It was getting out of hand, I had to do something. Pt reports he is currently on Suboxone, 2 mg daily, has been decreasing dose with a goal of discontinuation in order to start naltrexone/Vivitrol. Pt states This will kind of change that though. Pt reports abstinence from opioids x approx 7 years, has been on Suboxone for that length of time with positive effect. Pt reports hx Campral, unsure if it was helpful. Pt reports hx AA meetings, unsure if they were helpful. 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 Pt provided with written resources as well as t/w contact information if needed. Discussed with Adelita Hsu APRN. ice hockey coach to see patient this evening.
--- NOTE | 2023-07-11 18:05 | MHC.RECOVSUP ---
? Reason for consult Recovery support o Current location: [facility]- o Identified substance use concern: Alcohol - Support ? Intervention: o Community resources provided o Harm reduction discussion ? Plan: o Patient to follow up with [facility] after discharge ? Additional information: Met with Patient and we talk about recovery and Harm reduction.. We talk about [facility] as a place where he could be around people in recovery,, Resources was given..
[2023-07-11 19:29] VITALS: BP 139/100; PULSE 79; RESP 20; TEMP 36.8; O2SAT 99
[2023-07-11 20:46] LABS: Glucose, Whole Blood 107 mg/dL (60-115)
[2023-07-11 23:47] VITALS: BP 124/87; PULSE 74; RESP 19; TEMP 36.8; O2SAT 99
[2023-07-12] MEDS: Acetaminophen 325 MG TABLET 975 MG PO ×2 (00:09→21:00)
[2023-07-12] MEDS: QUEtiapine Fumarate 25 MG TABLET PO ×2 (00:10→22:14)
[2023-07-12 04:00] VITALS: BP 126/90; PULSE 81; RESP 19; TEMP 36.2; O2SAT 99
[2023-07-12] MEDS: Lactated Ringers 1,000 ML 125 ML IVCONT ×3 (05:54→21:52)
[2023-07-12] MEDS: Pantoprazole Sodium 40 MG/10 ML VIAL IVPUSH (05:54)
[2023-07-12 07:07] VITALS: BP 137/91; PULSE 81; RESP 18; TEMP 36.6; O2SAT 99
[2023-07-12] MEDS: PHENobarbitaL 30 MG TABLET PO ×2 (09:05→20:59)
[2023-07-12] MEDS: Buprenorphine/Naloxone 2/0.5mg FILM 1 FILM SUBLINGUAL (09:05)
[2023-07-12] MEDS: Ibuprofen 400 MG TABLET PO ×3 (09:05→16:46)
[2023-07-12] MEDS: Nicotine 21 MG PATCH.TD24 TRANSDERMA (09:05)
[2023-07-12] MEDS: buPROPion HCl XL 300 MG TAB.ER.24H PO (09:05)
[2023-07-12] MEDS: Heparin Sodium,Porcine 5,000 UNIT/ML VIAL 5000 UNIT SUBCUT ×2 (09:06→20:59)
[2023-07-12] MEDS: amLODIPine Besylate 5 MG TABLET PO (09:06)
[2023-07-12] MEDS: Atorvastatin Calcium 20 MG TABLET PO (09:06)
[2023-07-12] MEDS: hydroCHLOROthiazide 25 MG TABLET PO (09:06)
[2023-07-12] MEDS: Betamethasone Dip Aug 0.05% Cr 15 GM TUBE 1 APPL TOPICAL ×2 (09:07→21:00)
[2023-07-12] MEDS: Dorzolamide/Timolo 2.23%/0.68% 10 ML DRBTL 1 DROP EYE-BOTH ×2 (09:07→21:01)
[2023-07-12 11:04] VITALS: BP 134/88; PULSE 73; RESP 18; TEMP 36.6; O2SAT 99
--- NOTE | 2023-07-12 12:25 | P.PNIM_ITS ---
Subjective Subjective Date of Service: 07/12/23 Interval History: Seen and evaluated this morning feels jittery and restless low energy and whole body pains reports anxiety and restlessness Review of Systems Review of Systems: Yes all other systems are reviewed and are negative Physical Exam 2 Vital Signs: Vital Signs: Last Vital Signs Temp 97.8 F 07/12/23 11:04 Pulse 73 07/12/23 11:04 Resp 18 07/12/23 11:04 BP 134/88 07/12/23 11:04 Pulse Ox 99 07/12/23 11:04 O2 Del Method Room Air 07/12/23 11:04 BMI result Body Mass Index 26.4 Const: Other: Constitutional : Awake, interactive, anxious Neck : Normal inspection, Supple Cardiovascular : RRR, no JVP, no lower extremity edema Respiratory : good bilateral air entry, no crackles, wheezes or rhonchi Gastrointestinal: soft, lax, Normal bowel sounds, Non tender Skin : Warm, Dry Neurological : Alert & oriented x3, No focal deficit, mild tremors Objective Data Active Medications Acetaminophen (Acetaminophen 325 Mg Tablet) 975 mg PO Q6H PRN PRN Reason: headache Last Admin: 07/12/23 00:09 Dose: 975 mg Documented By: JESÚS Amlodipine Besylate (Amlodipine Besylate 5 Mg Tablet) 5 mg PO DAILY [facility]; Protocol Last Admin: 07/12/23 09:06 Dose: 5 mg Documented By: KELLY Atorvastatin Calcium (Atorvastatin Calcium 20 Mg Tablet) 20 mg PO DAILY [facility] Last Admin: 07/12/23 09:06 Dose: 20 mg Documented By: KELLY Betamethasone Dipropion Augmented (Betamethasone Dip Aug 0.05% Cr 15 Gm Tube) 1 appl TOPICAL BID [facility]; Protocol Last Admin: 07/12/23 09:07 Dose: 1 appl Documented By: KELLY Buprenorphine/Naloxone (Buprenorphine/Naloxone 2/0.5mg Film) 1 film SUBLINGUAL DAILY [facility] Last Admin: 07/12/23 09:05 Dose: 1 film Documented By: KELLY Bupropion HCl (Bupropion Hcl Xl 300 Mg Tab.Er.24h) 300 mg PO DAILY [facility] Last Admin: 07/12/23 09:05 Dose: 300 mg Documented By: KELLY Dorzolamide/Timolol (Dorzolamide/Timolo 2.23%/0.68% 10 Ml Drbtl) 1 drop EYE- BOTH BID [facility] Last Admin: 07/12/23 09:07 Dose: 1 drop Documented By: KELLY Heparin Sodium (Porcine) (Heparin Sodium,Porcine 5,000 Unit/Ml Vial) 5,000 unit SUBCUT Q12H [facility] Last Admin: 07/12/23 09:06 Dose: 5,000 unit Documented By: KELLY Hydrochlorothiazide (Hydrochlorothiazide 25 Mg Tablet) 25 mg PO DAILY [facility]; Protocol Last Admin: 07/12/23 09:06 Dose: 25 mg Documented By: KELLY Hydroxyzine HCl (Hydroxyzine Hcl 50 Mg Tablet) 50 mg PO Q6H PRN PRN Reason: anxiety/restlessness Lactated Ringer's (Lr) 1,000 mls @ 125 mls/hr IVCONT .Q8H [facility] Last Admin: 07/12/23 05:54 Dose: 125 mls/hr Documented By: JESÚS Ibuprofen (Ibuprofen 400 Mg Tablet) 400 mg PO TIDWM [facility] Last Admin: 07/12/23 12:05 Dose: 400 mg Documented By: KELLY Nicotine (Nicotine 21 Mg Patch.Td24) 21 mg TRANSDERMA DAILY [facility] Last Admin: 07/12/23 09:05 Dose: 21 mg Documented By: KELLY Pharmacy Consult (Consult Rx Etoh Phenob Im/Po) 1 each MISCELLANE ONCE PRN; Protocol PRN Reason: Consult order Phenobarbital (Phenobarbital 30 Mg Tablet) 30 mg PO BID [facility]; Protocol Stop: 07/12/23 21:01 Last Admin: 07/12/23 09:05 Dose: 30 mg Documented By: KELLY Phenobarbital (Phenobarbital 30 Mg Tablet) 30 mg PO DAILY [facility]; Protocol Stop: 07/14/23 09:01 Quetiapine Fumarate (Quetiapine Fumarate 25 Mg Tablet) 25 mg PO BEDTIME PRN PRN Reason: insomnia Last Admin: 07/12/23 00:10 Dose: 25 mg Documented By: JESÚS Sodium Chloride (0.9 % Sodium Chloride Flush 3 Ml Syringe) 3 ml IVFLUSH QSHIFT [facility] Last Admin: 07/12/23 09:06 Dose: Not Given Documented By: HO.PHANLYM Non-Admin Reason: IV Running Labs 07/10/23 06:21 07/11/23 05:47 Labs: Laboratory Results - last 24 hr 07/11/23 07/11/23 15:55 20:29 POC Glucose 112 107 Assessment and Plan (1) Acute hypokalemia: Status: Acute (2) Alcohol withdrawal syndrome: Status: Acute Plan Thanh Amanda is a 57 years old man with past medical history significant for alcohol abuse, IVDU on Suboxone and depression # Alcohol abuse with withdrawal reporting no energy, jittery and restless. still actively withdrawing Continue CIWA protocol Give extra dose of Phenobarbital continue phenobarb protocol Thiamine, folic acid and multivitamins IV fluids Addiction team consult. # Acute Hypokalemia Replete as needed. Continue to monitor potassium level. # Hyperglycemia Likely related to alcohol consumption No history of diabetes mellitus, HbA1c 5.3 # History of IVDU. Continue Suboxone. # Essential hypertension. Hydrochlorothiazide is on hold due to hypokalemia. Start amlodipine. # Depression. Continue Wellbutrin. DVT prophylaxis: Heparin subQ. Code status: Full. Patient will require hospitalization overnight for alcohol withdrawal syndrome phenobarbital, CIWA protocol and addiction team evaluation. Quality Stroke Does the patient have a stroke diagnosis?: No VTE Prior VTE?: No VTE Risk Level:: Medical - moderate - high VTE Device Contraindication: Treatment Not Indicated VTE Drug Contraindication: N/A - Med Ordered
[2023-07-12 13:47] LABS: Anion Gap 12 (12-20); Blood Urea Nitrogen 10 mg/dL (9-16); Calcium 9.1 mg/dL (8.4-10.2); Carbon Dioxide 28 mmol/L (22-29); Chloride 98 mmol/L (96-108); Creatinine Clr Calc Pharmacy 83.2; Estimated Glomerular Filt Rate > 60; Glucose Random 139 mg/dL (60-115); Potassium 3.8 mmol/L (3.3-5.1); Sodium 134 mmol/L (135-145)
[2023-07-12 15:23] VITALS: BP 127/79; PULSE 69; RESP 18; TEMP 36.5; O2SAT 98
[2023-07-12 18:53] VITALS: BP 135/83; PULSE 74; RESP 20; TEMP 36.6; O2SAT 98
[2023-07-13] VITALS: BP 117/83; PULSE 71; RESP 20; TEMP 36.4; O2SAT 97
[2023-07-13] MEDS: 0.9 % Sodium Chloride Flush 3 ML SYRINGE IVFLUSH ×2 (00:18→08:41)
[2023-07-13 03:11] VITALS: BP 139/82; PULSE 78; RESP 20; TEMP 36.3; O2SAT 99
[2023-07-13] MEDS: Lactated Ringers 1,000 ML 125 ML IVCONT (05:38)
[2023-07-13 07:10] VITALS: BP 148/89; PULSE 67; RESP 18; TEMP 36.8; O2SAT 99
[2023-07-13] MEDS: PHENobarbitaL 30 MG TABLET PO (08:38)
[2023-07-13] MEDS: amLODIPine Besylate 5 MG TABLET PO (08:38)
[2023-07-13] MEDS: Nicotine 21 MG PATCH.TD24 TRANSDERMA (08:39)
[2023-07-13] MEDS: Buprenorphine/Naloxone 2/0.5mg FILM 1 FILM SUBLINGUAL (08:39)
[2023-07-13] MEDS: hydroCHLOROthiazide 25 MG TABLET PO (08:39)
[2023-07-13] MEDS: Atorvastatin Calcium 20 MG TABLET PO (08:39)
[2023-07-13] MEDS: Ibuprofen 400 MG TABLET PO (08:39)
[2023-07-13] MEDS: buPROPion HCl XL 300 MG TAB.ER.24H PO (08:39)
[2023-07-13] MEDS: Heparin Sodium,Porcine 5,000 UNIT/ML VIAL 5000 UNIT SUBCUT (08:40)
[2023-07-13] MEDS: Dorzolamide/Timolo 2.23%/0.68% 10 ML DRBTL 1 DROP EYE-BOTH (08:40)
[2023-07-13] MEDS: Betamethasone Dip Aug 0.05% Cr 15 GM TUBE 1 APPL TOPICAL (08:41)
[2023-07-13 10:53] VITALS: BP 146/82; PULSE 70; RESP 20; TEMP 36.7; O2SAT 99
--- NOTE | 2023-07-13 10:54 | PM.DS ---
DS: Providers Provider Date of Service: 07/13/23 Date of admission: 07/09/23 00:39 Primary care physician: Vandana Zamora MD Consults: 07/10/23 11:26 Addiction Medicine Routine Consulting Provider: Addiction Covering Reason for consultation: Alcoholism w withdrawal for eval and rec. DS: Diagnosis Discharge Diagnosis (1) Acute hypokalemia: Status: Acute (2) Alcohol withdrawal syndrome: Status: Acute (3) Uncontrolled hypertension: Status: Acute DS: Summary Hospital Course Hospital Course: Admission note HPI Thanh Amanda is a 57 years old man with past medical history significant for alcohol abuse, IVDU on Suboxone, hypertension and depression presents to the emergency department complaining of shakiness, anxiety, nausea and vomiting. He also complained of generalized abdominal discomfort. He denies diarrhea, fevers chills. He does complain of headache but denies any acute visual disturbances. He denies any cardiopulmonary or genitourinary symptoms. He drinks about 20 nips of vodka daily. He stated that the last drink was yesterday. In the ED, he was found to have sinus tachycardia that his blood pressure has been elevated. There is no fever and oxygen saturation is normal on room air. Blood workup showed no leukocytosis. Hemoglobin is normal. Potassium level is 3.1 and bicarb is slightly low at 21. Blood glucose is 289. Urine drug screen is negative. Alcohol level is 166. ECG is normal. ED tx: Therapy with phenobarbital was initiated. Potassium 40 mEq p.o. x1, magnesium 2 g IV x1 thiamine 100 mg IV, NS 1 L bolus Hospital course # Alcohol abuse with withdrawal He was treated with IV fluids and PHenobarbital protocol requiring extra doses along with Thiamin and folic acid. Addiction team evaluated the patient and provided outpatient resources. Monitored on CIWA during the hospital stay. Advised complete abstinence from alcohol and encouraged to do so. # Acute Hypokalemia Replete as needed. Continue to monitor potassium level. # Hyperglycemia on admission. Likely related to alcohol consumption. No history of diabetes mellitus, HbA1c 5.3 # Uncontrolled Hypertension Blood pressure noted to be elevated. Started Amlodipine. We advise you complete abstinence from alcohol Take Thiamine daily Atarax as needed for anxiety Start Amlodipine 5 mg daily and monitor your blood pressure at home. report 1 week readings to PCP. Time Attestation Discharge coordination time: Greater than 30 minutes Quality: Safe Use of Opioids Does Pt have an Active Cancer Diagnosis on the Problem List?: No Quality: Stroke Does the patient have a stroke diagnosis?: No Physical Exam Vital Signs: Vital Signs: Last Vital Signs Temp 98.2 F 07/13/23 07:10 Pulse 67 07/13/23 07:10 Resp 18 07/13/23 07:10 BP 148/89 H 07/13/23 07:10 Pulse Ox 99 07/13/23 07:10 O2 Del Method Room Air 07/13/23 07:10 BMI result Body Mass Index 26.4 Const: Other: Constitutional : Awake, interactive, Neck : Normal inspection, Supple Cardiovascular : RRR, no JVP, no lower extremity edema Respiratory : good bilateral air entry, no crackles, wheezes or rhonchi Gastrointestinal: soft, lax, Normal bowel sounds, Non tender Skin : Warm, Dry Neurological : Alert & oriented x3, No focal deficit, no tremors DS: Data Data Completed and Pending Labs on day of discharge: Laboratory Results - last 24 hr 07/12/23 13:21 Hold Purple Top SEE NOTE Sodium 134 L Potassium 3.8 Chloride 98 Carbon Dioxide 28 Anion Gap 12 BUN 10 Creatinine 1.12 Estim Creat Clear Calc 83.2 Estimated GFR > 60 Random Glucose 139 H Calcium 9.1 D Discharge Plan Discharge Anticipated Discharge Date/Time: 07/13/23 10:49 Patient Disposition: Home, Self-Care Discharge Diagnosis: Alcohol withdrawal Referrals: Vandana Zamora MD [Primary Care Provider] - 1 Week Discharge Medications: New hydroxyzine HCl 50 mg Tablet 50 mg PO Q6H PRN (Reason: Anxiety/Restlessness) Qty: 60 0RF amlodipine 5 mg Tablet 5 mg PO DAILY Qty: 90 0RF Protocol: Hold for SBP< HOLD for SBP < : 90 thiamine HCl (vitamin B1) 100 mg tablet 100 mg PO DAILY Qty: 90 0RF Continued hydrochlorothiazide 25 mg tablet 25 mg PO DAILY Qty: 90 0RF quetiapine 200 mg tablet 200 mg PO BEDTIME bupropion HCl 300 mg tablet extended release 24 hr 300 mg PO DAILY buprenorphine-naloxone 2-0.5 mg film 1 film sublingual DAILY atorvastatin 20 mg tablet 20 mg PO DAILY terbinafine HCl 250 mg tablet 250 mg PO DAILY nicotine 21 mg/24 hr patch 24 hour 1 patch topical DAILY gabapentin 300 mg capsule 300 mg PO TID PRN (Reason: Pain) dorzolamide-timolol 22.3-6.8 mg/mL drops 1 drp ophthalmic (eye) BID Discharge Orders: Discharge Order (Routine); Ordered 07/13/23 Ordered By: Rodrigo Waldrop Diet: Advance to usual diet Activity on Discharge: As tolerated Stand Alone Forms: Patient Portal Discharge page Care Plan Goals: Read below Health Concerns: Read below Plan of Treatment: Read below Assessment: We advise you complete abstinence from alcohol Take Thiamine daily Atarax as needed for anxiety Start Amlodipine 5 mg daily and monitor your blood pressure at home. report 1 week readings to PCP.
--- NOTE | 2023-07-13 11:44 | MHC.CM.PN ---
PATIENT TO UTILIZE [facility] SHUTTLE SERVICES HE IS EXPECTED TO BE TRANSPORT AT APPROXIMATELY 12:45 TODAY. COMPLETED SHUTTLE VOUCHER GIVEN TO RN PATIENT AWARE OF PLAN.
--- NOTE | 2023-07-13 12:45 | MHC.CM.PN ---
PATIENT BELONGINGS (2 BAGS) RETRIEVED FROM [facility] AND VERIFIES ALL OF HIS BELONGINGS
== END 2023-07-13 12:49 | disposition home or self-care (01) | DRG 425 ==
LOC: HO.ED 23:50 → HO.EDOVER 07-09 00:47 → HO.IMC 07-09 14:22
PROVIDERS: Admitting Provider Internal Medicine; Emergency Provider Emergency Medicine; PCP Family Medicine; Visit Provider Student in an Organized Health Care Education/Training Program
DX: E87.6 Hypokalemia (principal); F10.139 Alcohol abuse with withdrawal, unspecified; F11.20 Opioid dependence, uncomplicated; I10 Essential (primary) hypertension; R73.9 Hyperglycemia, unspecified; F32.A Depression, unspecified; Y90.6 Blood alcohol level of 120-199 mg/100 ml; Z79.899 Other long term (current) drug therapy
CPT/HCPCS: 36415; 80048; 80053; 80076; 80299; 80307; 82947; 83036; 83735; 85027; 85610; 93005; 97161; 99285; C9113; J1644; J2560; J3411; J3475; J3480; J7120

== ENCOUNTER → 2023-07-08 22:49 | Outpatient (BNV) | payer OTHER, SELFPAY | PROVIDERS: Admitting Provider Internal Medicine; Emergency Provider Emergency Medicine; PCP Family Medicine; Visit Provider Internal Medicine Cardiovascular Disease | DX: F10.930 Alcohol use, unspecified with withdrawal, uncomplicated (principal) | CPT/HCPCS: 93010 ==

== ENCOUNTER → 2023-07-09 00:39 | Outpatient (BNV) | payer OTHER, SELFPAY | PROVIDERS: Admitting Provider Internal Medicine; Emergency Provider Emergency Medicine; PCP Family Medicine; Visit Provider Internal Medicine | DX: F10.930 Alcohol use, unspecified with withdrawal, uncomplicated (principal); E87.6 Hypokalemia | CPT/HCPCS: 99223; 99232; 99239; 99499 ==